=== PATIENT | female | born 1980 ===

== ENCOUNTER 2017-07-19 20:35 | Inpatient (IN) | payer MEDICAID, OTHER ==
[2017-07-19] MEDS ORDERED: Sodium Chloride 0.9% 10 ML Syringe FLUSH PRN (21:12)
[2017-07-19] MEDS ORDERED: Sodium Chloride 0.9% 2.5 ML Syringe FLUSH PRN (21:12)
--- NOTE | 2017-07-19 21:12 | EDM.PDOC ---
<Chloe Cameron - Last Filed: 07/19/17 21:54> ED HPI GENERAL MEDICAL PROBLEM - General Chief Complaint: Respiratory Problem Stated Complaint: PT LOWER BODY NUMB Time Seen by Provider: 07/19/17 21:09 Source of Information: Reports: Patient History Limitations: Reports: No Limitations - History of Present Illness INITIAL COMMENTS - FREE TEXT/NARRATIVE: HISTORY AND PHYSICAL: []37-year-old female presenting with concerns over cough and cold fever she's had this for the last 3 weeks Now patient states that from her knees to groin anterior thighs have numbness. She is concerned that her left breast is causing her pain for 4 months. And she is dehydrated History of Present Illness: [Patient moved here 6 months ago just previous to moving she had a physical examination.] Patient states that she's been a heavy drinker for a "long time" Review of Systems: As per history of present illness and below otherwise all systems reviewed and negative. Past medical history: As per history of present illness and as reviewed below otherwise noncontributory. Surgical history: As per history of present illness and as reviewed below otherwise noncontributory. Social history: No reported history of drug or alcohol abuse. Family history: As per history of present illness and as reviewed below otherwise noncontributory. Physical exam: Alert and oriented female answering questions appropriately in full sentences without any shortness of breath HEENT: Atraumatic, normocehpalic, pupils reactive, negative for conjunctival pallor or scleral icterus, mucous membranes dry, throat clear, neck supple, nontender, trachea midline. Lungs: Clear to auscultation, breath sounds equal bilaterally, chest non tender. Breast exam shows fibrocystic tissue exquisite tenderness to the 2:00 and 10:00 positions. No exudate/fluid is noted from the nipple. Heart: S1S2, regular, negative for clicks, rubs, or JVD. Abdomen: Soft, nondistended, tender upon palpation fluid present. Exquisite tenderness left upper quadrant Negative for masses or hepatossplenmegaly. Negative for costovertebral tenderness. Pelvis: Stable nontender. Genitourinary: Deferred. Rectal: Deferred Extremities: Atraumatic, negative for cords or calf pain. Neurovascular unremarkable. Neuro: Awake, alert, oriented. Cranial nerves II through XII unremarkable. Cerebellum unremarkable. Motor and sensory unremarkable throughout. Exam nonfocal. Report has been given to Dr. Cox who will take over care. Diagnostics: [cbc, cmp, influenza, UA EtOH CT abdomen pelvis with contrast] Therapeutics: [IV fluids] Impression: [Rule out Pancreatitis] Plan: [] Definitive disposition and diagnosis as appropriate pending reevaluation and review of above. Onset: Gradual Duration: Day(s): (3), Getting Worse Location: Reports: Generalized Quality: Reports: Ache, Throbbing Severity: Moderate Improves with: Reports: None Worsens with: Reports: None Associated Symptoms: Reports: Cough, Fever/Chills both legs Pain Score (Numeric/FACES): 9 - Related Data Allergies Allergy/AdvReac Type Severity Reaction Status Date / Time No Known Allergies Allergy Verified 07/19/17 21:00 Home Meds: Home Meds . [No Known Home Meds] 07/19/17 [History] Past Medical History - Past Health History Medical/Surgical History: Denies Medical/Surgical History Social & Family History - Tobacco Use Smoking Status *Q: Never Smoker Second Hand Smoke Exposure: No - Alcohol Use Days Per Week of Alcohol Use: 2 Number of Drinks Per Day: 4 Total Drinks Per Week: 8 - Recreational Drug Use Recreational Drug Use: No ED ROS GENERAL - Review of Systems Review Of Systems: ROS reveals no pertinent complaints other than HPI. ED EXAM, GENERAL - Physical Exam Exam: See Below (see dictation) Course - Vital Signs Last Recorded V/S: Last Vital Signs Temp 97.4 F 07/20/17 01:09 Pulse 101 H 07/20/17 01:09 Resp 18 07/20/17 01:09 BP 109/71 07/20/17 01:09 Pulse Ox 99 07/20/17 01:09 - Orders/Labs/Meds Orders: Active Orders 24 hr Category Date Time Status Abdomen Ltd [US] Stat Exams 07/20/17 00:19 Ordered Abdomen Pelvis w Cont [CT] Stat Exams 07/19/17 21:34 Taken Chest 2V [CR] Stat Exams 07/19/17 21:13 Taken CULTURE URINE [RM] Stat Lab 07/19/17 20:15 Received Sodium Chloride 0.9% [Normal Saline] 1,000 ml Med 07/19/17 23:46 Active IV STAT Sodium Chloride 0.9% [Saline Flush] Med 07/19/17 21:12 Active 10 ml FLUSH ASDIRECTED PRN Sodium Chloride 0.9% [Saline Flush] Med 07/19/17 21:12 Active 2.5 ml FLUSH ASDIRECTED PRN Saline Lock Insert [OM.PC] Stat Oth 07/19/17 21:12 Ordered Medication Orders Sodium Chloride (Normal Saline) 1,000 mls @ 125 mls/hr IV STAT ONE Stop: 07/20/17 07:45 Last Admin: 07/19/17 23:52 Dose: 125 mls/hr Sodium Chloride (Saline Flush) 10 ml FLUSH ASDIRECTED PRN PRN Reason: Keep Vein Open Last Admin: 07/19/17 22:52 Dose: 10 ml Sodium Chloride (Saline Flush) 2.5 ml FLUSH ASDIRECTED PRN PRN Reason: Keep Vein Open Last Admin: 07/19/17 22:51 Dose: 2.5 ml Labs: Laboratory Tests 07/19/17 07/19/17 07/19/17 Range/Units 20:15 20:15 20:15 WBC (4.0-11.0) K/uL RBC (4.30-5.90) M/uL Hgb (12.0-16.0) g/dL Hct (36.0-46.0) % MCV (80.0-98.0) fL MCH (27.0-32.0) pg MCHC (31.0-37.0) g/dL RDW Std Deviation (28.0-62.0) fl RDW Coeff of Kj (11.0-15.0) % Plt Count (150-400) K/uL MPV (7.40-12.00) fL Add Manual Diff Neutrophils % (Manual) (48.0-80.0) % Band Neutrophils % % Lymphocytes % (Manual) (16.0-40.0) % Monocytes % (Manual) (0.0-15.0) % Eosinophils % (Manual) (0.0-7.0) % Basophils % (Manual) (0.0-1.5) % Nucleated RBC % /100WBC Absolute Seg Neuts (1.4-5.7) Band Neutrophils # Lymphocytes # (Manual) (0.6-2.4) Monocytes # (Manual) (0.0-0.8) Eosinophils # (Manual) (0.0-0.7) Basophils # (Manual) (0.0-0.1) Nucleated RBCs # K/uL Lactate (0.20-2.00) mmol/L Sodium (136-146) mmol/L Potassium (3.5-5.1) mmol/L Chloride (98-110) mmol/L Carbon Dioxide (21-31) mmol/L BUN (6.0-23.0) mg/dL Creatinine (0.6-1.5) mg/dL Est Cr Clr Drug Dosing mL/min Estimated GFR (MDRD) ml/min Glucose (60-110) mg/dL Calcium (8.8-10.8) mg/dL Total Bilirubin (0.1-1.5) mg/dL AST (5-40) IU/L ALT (8-54) IU/L Alkaline Phosphatase (40-150) Total Protein (6.0-8.0) g/dL Albumin (3.5-5.0) g/dL Globulin (2.0-3.5) g/dL Albumin/Globulin Ratio (1.3-2.8) Amylase (10-90) U/L Lipase (7-80) U/L Urine Color DARK YELLOW Urine Appearance SLT CLOUDY Urine pH 6.5 (5.0-8.0) Ur Specific [place] 1.020 (1.001-1.035) Urine Protein 30 (NEGATIVE) mg/dL Urine Glucose (UA) 100 H (NEGATIVE) mg/dL Urine Ketones 15 H (NEGATIVE) mg/dL Urine Occult Blood NEGATIVE (NEGATIVE) Urine Nitrite POSITIVE H (NEGATIVE) Urine Bilirubin MODERATE H (NEGATIVE) Urine Ictotest POSITIVE Urine Urobilinogen 4.0 H (<2.0) EU/dL Ur Leukocyte Esterase SMALL (NEGATIVE) Urine RBC 0-3 (0-2/HPF) Urine WBC 5-10 (0-5/HPF) Ur Epithelial Cells MODERATE (NONE-FEW) Urine Bacteria 4+ H (NEGATIVE) Urinalysis Comment Urine HCG, Qual NEGATIVE (NEGATIVE) Urine Opiates Screen NEGATIVE (NEGATIVE) Ur Oxycodone Screen NEGATIVE (NEGATIVE) Urine Methadone Screen NEGATIVE (NEGATIVE) Ur Barbiturates Screen NEGATIVE (NEGATIVE) Ur Phencyclidine Scrn NEGATIVE (NEGATIVE) Ur Amphetamine Screen NEGATIVE (NEGATIVE) U Methamphetamines Scrn NEGATIVE (NEGATIVE) U Benzodiazepines Scrn NEGATIVE (NEGATIVE) U Cocaine Metab Screen NEGATIVE (NEGATIVE) U Marijuana (THC) Screen NEGATIVE (NEGATIVE) Ethyl Alcohol mg/dL 07/19/17 07/19/17 07/19/17 Range/Units 21:15 21:15 21:20 WBC 20.44 H (4.0-11.0) K/uL RBC 3.79 L (4.30-5.90) M/uL Hgb 13.7 (12.0-16.0) g/dL Hct 39.2 (36.0-46.0) % MCV 103.4 H (80.0-98.0) fL MCH 36.1 H (27.0-32.0) pg MCHC 34.9 (31.0-37.0) g/dL RDW Std Deviation 50.1 (28.0-62.0) fl RDW Coeff of Kj 13 (11.0-15.0) % Plt Count 530 H (150-400) K/uL MPV 10.20 (7.40-12.00) fL Add Manual Diff YES Neutrophils % (Manual) 75 (48.0-80.0) % Band Neutrophils % 6 % Lymphocytes % (Manual) 13 L (16.0-40.0) % Monocytes % (Manual) 4 (0.0-15.0) % Eosinophils % (Manual) 1 (0.0-7.0) % Basophils % (Manual) 1 (0.0-1.5) % Nucleated RBC % 0.0 /100WBC Absolute Seg Neuts 15.3 H (1.4-5.7) Band Neutrophils # 1.2 Lymphocytes # (Manual) 2.7 H (0.6-2.4) Monocytes # (Manual) 0.8 (0.0-0.8) Eosinophils # (Manual) 0.2 (0.0-0.7) Basophils # (Manual) 0.2 H (0.0-0.1) Nucleated RBCs # 0 K/uL Lactate 2.8 H (0.20-2.00) mmol/L Sodium (136-146) mmol/L Potassium (3.5-5.1) mmol/L Chloride (98-110) mmol/L Carbon Dioxide (21-31) mmol/L BUN (6.0-23.0) mg/dL Creatinine (0.6-1.5) mg/dL Est Cr Clr Drug Dosing mL/min Estimated GFR (MDRD) ml/min Glucose (60-110) mg/dL Calcium (8.8-10.8) mg/dL Total Bilirubin (0.1-1.5) mg/dL AST (5-40) IU/L ALT (8-54) IU/L Alkaline Phosphatase (40-150) Total Protein (6.0-8.0) g/dL Albumin (3.5-5.0) g/dL Globulin (2.0-3.5) g/dL Albumin/Globulin Ratio (1.3-2.8) Amylase (10-90) U/L Lipase (7-80) U/L Urine Color Urine Appearance Urine pH (5.0-8.0) Ur Specific [place] (1.001-1.035) Urine Protein (NEGATIVE) mg/dL Urine Glucose (UA) (NEGATIVE) mg/dL Urine Ketones (NEGATIVE) mg/dL Urine Occult Blood (NEGATIVE) Urine Nitrite (NEGATIVE) Urine Bilirubin (NEGATIVE) Urine Ictotest Urine Urobilinogen (<2.0) EU/dL Ur Leukocyte Esterase (NEGATIVE) Urine RBC (0-2/HPF) Urine WBC (0-5/HPF) Ur Epithelial Cells (NONE-FEW) Urine Bacteria (NEGATIVE) Urinalysis Comment Urine HCG, Qual (NEGATIVE) Urine Opiates Screen (NEGATIVE) Ur Oxycodone Screen (NEGATIVE) Urine Methadone Screen (NEGATIVE) Ur Barbiturates Screen (NEGATIVE) Ur Phencyclidine Scrn (NEGATIVE) Ur Amphetamine Screen (NEGATIVE) U Methamphetamines Scrn (NEGATIVE) U Benzodiazepines Scrn (NEGATIVE) U Cocaine Metab Screen (NEGATIVE) U Marijuana (THC) Screen (NEGATIVE) Ethyl Alcohol < 10.0 mg/dL 07/19/17 Range/Units 21:20 WBC (4.0-11.0) K/uL RBC (4.30-5.90) M/uL Hgb (12.0-16.0) g/dL Hct (36.0-46.0) % MCV (80.0-98.0) fL MCH (27.0-32.0) pg MCHC (31.0-37.0) g/dL RDW Std Deviation (28.0-62.0) fl RDW Coeff of Kj (11.0-15.0) % Plt Count (150-400) K/uL MPV (7.40-12.00) fL Add Manual Diff Neutrophils % (Manual) (48.0-80.0) % Band Neutrophils % % Lymphocytes % (Manual) (16.0-40.0) % Monocytes % (Manual) (0.0-15.0) % Eosinophils % (Manual) (0.0-7.0) % Basophils % (Manual) (0.0-1.5) % Nucleated RBC % /100WBC Absolute Seg Neuts (1.4-5.7) Band Neutrophils # Lymphocytes # (Manual) (0.6-2.4) Monocytes # (Manual) (0.0-0.8) Eosinophils # (Manual) (0.0-0.7) Basophils # (Manual) (0.0-0.1) Nucleated RBCs # K/uL Lactate (0.20-2.00) mmol/L Sodium 134 L (136-146) mmol/L Potassium 3.0 L (3.5-5.1) mmol/L Chloride 92 L (98-110) mmol/L Carbon Dioxide 28 (21-31) mmol/L BUN 7 (6.0-23.0) mg/dL Creatinine 0.6 (0.6-1.5) mg/dL Est Cr Clr Drug Dosing 98.75 mL/min Estimated GFR (MDRD) > 60.0 ml/min Glucose 107 (60-110) mg/dL Calcium 9.4 (8.8-10.8) mg/dL Total Bilirubin 2.1 H (0.1-1.5) mg/dL AST 181 H (5-40) IU/L ALT 68 H (8-54) IU/L Alkaline Phosphatase 235 H (40-150) Total Protein 7.9 (6.0-8.0) g/dL Albumin 3.8 (3.5-5.0) g/dL Globulin 4.1 H (2.0-3.5) g/dL Albumin/Globulin Ratio 0.9 L (1.3-2.8) Amylase 80 (10-90) U/L Lipase 22 (7-80) U/L Urine Color Urine Appearance Urine pH (5.0-8.0) Ur Specific [place] (1.001-1.035) Urine Protein (NEGATIVE) mg/dL Urine Glucose (UA) (NEGATIVE) mg/dL Urine Ketones (NEGATIVE) mg/dL Urine Occult Blood (NEGATIVE) Urine Nitrite (NEGATIVE) Urine Bilirubin (NEGATIVE) Urine Ictotest Urine Urobilinogen (<2.0) EU/dL Ur Leukocyte Esterase (NEGATIVE) Urine RBC (0-2/HPF) Urine WBC (0-5/HPF) Ur Epithelial Cells (NONE-FEW) Urine Bacteria (NEGATIVE) Urinalysis Comment Urine HCG, Qual (NEGATIVE) Urine Opiates Screen (NEGATIVE) Ur Oxycodone Screen (NEGATIVE) Urine Methadone Screen (NEGATIVE) Ur Barbiturates Screen (NEGATIVE) Ur Phencyclidine Scrn (NEGATIVE) Ur Amphetamine Screen (NEGATIVE) U Methamphetamines Scrn (NEGATIVE) U Benzodiazepines Scrn (NEGATIVE) U Cocaine Metab Screen (NEGATIVE) U Marijuana (THC) Screen (NEGATIVE) Ethyl Alcohol mg/dL Meds: Medications Generic Name Dose Route Start Last Admin Trade Name Freq PRN Reason Stop Dose Admin Sodium Chloride 1,000 mls @ 125 mls/hr 07/19/17 23:46 07/19/17 23:52 Normal Saline IV 07/20/17 07:45 125 mls/hr STAT ONE Administration Sodium Chloride 10 ml 07/19/17 21:12 07/19/17 22:52 Saline Flush FLUSH 10 ml ASDIRECTED PRN Administration Keep Vein Open Sodium Chloride 2.5 ml 07/19/17 21:12 07/19/17 22:51 Saline Flush FLUSH 2.5 ml ASDIRECTED PRN Administration Keep Vein Open Discontinued Medications Generic Name Dose Route Start Last Admin Trade Name Freq PRN Reason Stop Dose Admin Sodium Chloride 1,000 mls @ 999 mls/hr 07/19/17 22:48 07/19/17 22:51 Normal Saline IV 07/19/17 23:48 999 mls/hr STAT ONE Administration Piperacillin Sod/Tazobactam 50 mls @ 100 mls/hr 07/19/17 23:33 07/19/17 23:47 Sod 3.375 gm/ Sodium Chloride IV 07/20/17 00:02 100 mls/hr ONETIME ONE Administration Ketorolac Tromethamine 30 mg 07/19/17 22:23 07/19/17 22:53 Toradol IVPUSH 07/19/17 22:24 30 mg ONETIME ONE Administration Ondansetron HCl 4 mg 07/19/17 22:23 07/19/17 22:52 Zofran IVPUSH 07/19/17 22:24 4 mg ONETIME ONE Administration Departure - Departure Time of Disposition: 21:57 Disposition: Refer to Observation Condition: Good Clinical Impression: Pancreatitis, Right upper quadrant pain, Hepatomegaly, Elevated liver function tests, UTI (urinary tract infection) - Discharge Information Referrals: PCP,None [Primary Care Provider] - Forms: ED Department Discharge - My Orders Last 24 Hours: My Active Orders 07/19/17 23:46 Sodium Chloride 0.9% [Normal Saline] 1,000 ml IV STAT 07/20/17 00:19 [place] [[place]] Stat - Assessment/Plan Last 24 Hours: My Active Orders 07/19/17 23:46 Sodium Chloride 0.9% [Normal Saline] 1,000 ml IV STAT 07/20/17 00:19 [facility] [[place]] Stat <Marc Cardona - Last Filed: 07/20/17 01:22> ED HPI GENERAL MEDICAL PROBLEM - History of Present Illness INITIAL COMMENTS - FREE TEXT/NARRATIVE: Patient is seen and examined agree with above Patient clinically looks well however lab has returned abnormal with abnormal liver function, she is a known heavy drinker lab is consistent with that along with right upper quadrant pain I did add an abdominal ultrasound which was negative for evidence of cholecystitis there is a little sludge in the gallbladder. She has significant urinary tract infection elevated white count and lactate is 3 Assessment UTI Right upper quadrant discomfort Fatty liver Hepatomegaly Elevated liver function tests Alcohol use abuse and dependence Chronic history of baseline Plan Patient was provided Zosyn 3.375 g IV Toradol 30 mg IV Zofran 8 mg IV Patient be admitted for observation Dr. Lawton Departure - Departure Condition: Fair
[2017-07-19 22:01] LABS: CHLORIDE,CL 92 mmol/L (98-110); SODIUM,NA 134 mmol/L (136-146)
[2017-07-19] MEDS ORDERED: Ketorolac 30 MG/ML SDV IVPUSH ONE (22:23)
[2017-07-19] MEDS ORDERED: Ondansetron 4 MG/2 ML SDV IVPUSH ONE (22:23)
[2017-07-19] MEDS ORDERED: Sodium Chloride 0.9% 1,000 ML IV ONE ×2 (22:48→23:46)
[2017-07-19] MEDS ORDERED: Piperacillin/Tazobactam 3.375 GM in Sodium Chloride 0.9% 50 ML IV ONE (23:33)
[2017-07-20] MEDS ORDERED: Morphine 2 MG/ML Syringe IVPUSH PRN (02:11)
[2017-07-20] MEDS ORDERED: Potassium Chloride 20 MEQ Tab.ER PO ONE ×2 (02:14→12:27)
[2017-07-20 03:41] LABS: CHLORIDE,CL 98 mmol/L (98-110); SODIUM,NA 136 mmol/L (136-146)
[2017-07-20] MEDS: LORazepam 2 MG/ML SDV IVPUSH PRN ×5 (04:18→23:30)
[2017-07-20] MEDS: Piperacillin/Tazobactam 3.375 GM in Sodium Chloride 0.9% 50 ML IV SCH ×4 (06:05→23:09)
[2017-07-20] MEDS: Sodium Chloride 0.9% 1,000 ML IV SCH ×2 (08:36→17:13)
[2017-07-20] MEDS: Folic Acid 1 MG Tab PO SCH (09:03)
[2017-07-20] MEDS: Thiamine 100 MG Tab PO SCH (09:03)
--- NOTE | 2017-07-20 12:34 | PCM.HP ---
H&P History of Present Illness - General Admit Problem/Dx: Admission Diagnosis/Problem Admission Diagnosis/Problem UTI, Urinary tract infectious disease - History of Present Illness Initial Comments - Free Text/Narative: 37 yo female who presents to the ED feeling ill. She reports fevers, chills and myalgias. She reports back pain as well as abdminal numbness. She reports nausea and vomiting. She has not been able to eat anything for a day. She admits to drinking a large bottle of fireball a day. She reports when she tries to cut back she gets sick. She wants to quit drinking. WBC was 20,440, Lactate of 2.8, Total bilirubin of 2.1, AST 181, ALT 68, Alk phos 235. CT abdomen reports Hepatic steatosi and hepatomegaly. RUQ ultrasound reported gallbladder sludge but no further signs of cholecystitis. Left Upper Abdomen Pain Score (Numeric/FACES): 9 both legs Pain Score (Numeric/FACES): 9 - Related Data Allergies/Adverse Reactions: Allergies Allergy/AdvReac Type Severity Reaction Status Date / Time No Known Allergies Allergy Verified 07/19/17 21:00 Home Medications: Home Meds . [No Known Home Meds] 07/19/17 [History] Past Medical History - Past Health History Medical/Surgical History: Denies Medical/Surgical History HEENT History: Reports: None Cardiovascular History: Reports: None Respiratory History: Reports: None Gastrointestinal History: Reports: None Genitourinary History: Reports: None PRODUCT DEVELOPMENT INTERN History: Reports: Musculoskeletal History: Reports: None Neurological History: Reports: None Psychiatric History: Reports: None Endocrine/Metabolic History: Reports: None Hematologic History: Reports: None Immunologic History: Reports: None Oncologic (Cancer) History: Reports: None Dermatologic History: Reports: None - Infectious Disease History Infectious Disease History: Reports: None - Past Surgical History GI Surgical History: Reports: Appendectomy Social & Family History - Family History Family Medical History: Noncontributory - Tobacco Use Smoking Status *Q: Never Smoker Second Hand Smoke Exposure: No - Caffeine Use Caffeine Use: Reports: None - Alcohol Use Days Per Week of Alcohol Use: 7 Number of Drinks Per Day: 5 Total Drinks Per Week: 35 - Recreational Drug Use Recreational Drug Use: No H&P Review of Systems - Review of Systems: Review Of Systems: ROS reveals no pertinent complaints other than HPI. Exam - Exam Exam: See Below - Vital Signs Vital Signs: Last Vital Signs Temp 36.3 C 07/20/17 08:00 Pulse 85 07/20/17 08:00 Resp 16 07/20/17 08:00 BP 123/91 H 07/20/17 08:00 Pulse Ox 97 07/20/17 08:00 Weight: 54.431 kg - Exam General: Alert, Oriented HEENT: Mucosa Moist & [place], Posterior Pharynx Clear Neck: Supple Lungs: Clear to Auscultation, Normal Respiratory Effort Cardiovascular: Regular Rate, Regular Rhythm GI/Abdominal Exam: Soft, No Distention, Tender (in left lower quadrant). No: Guarding, Rigid, Rebound Back Exam: No: CVA Tenderness (L), CVA Tenderness (R) Skin: Warm, Dry, Intact - Patient Data Lab Results Last 24 hrs: Laboratory Results - last 24 hr 07/20/17 07/20/17 07/20/17 Range/Units 03:00 03:00 03:00 WBC 18.92 H (4.0-11.0) K/uL RBC 3.42 L (4.30-5.90) M/uL Hgb 12.0 (12.0-16.0) g/dL Hct 35.5 L (36.0-46.0) % MCV 103.8 H (80.0-98.0) fL MCH 35.1 H (27.0-32.0) pg MCHC 33.8 (31.0-37.0) g/dL RDW Std Deviation 45.1 (28.0-62.0) fl RDW Coeff of Kj 12 (11.0-15.0) % Plt Count 477 H (150-400) K/uL MPV 10.20 (7.40-12.00) fL Neut % (Auto) 78.2 (48.0-80.0) % Lymph % (Auto) 12.9 L (16.0-40.0) % [place] % (Auto) 7.6 (0.0-15.0) % Eos % (Auto) 1.1 (0.0-7.0) % Baso % (Auto) 0.2 (0.0-1.5) % Neut # (Auto) 14.8 H (1.4-5.7) K/uL Lymph # (Auto) 2.5 H (0.6-2.4) K/uL [place] # (Auto) 1.4 H (0.0-0.8) K/uL Eos # (Auto) 0.2 (0.0-0.7) K/uL Baso # (Auto) 0.0 (0.0-0.1) K/uL Lactate 1.9 (0.20-2.00) mmol/L Sodium 136 (136-146) mmol/L Potassium 3.2 L (3.5-5.1) mmol/L Chloride 98 (98-110) mmol/L Carbon Dioxide 24 (21-31) mmol/L BUN 5 L (6.0-23.0) mg/dL Creatinine 0.5 L (0.6-1.5) mg/dL Est Cr Clr Drug Dosing 118.50 mL/min Estimated GFR (MDRD) > 60.0 ml/min Glucose 96 (60-110) mg/dL Calcium 8.1 L (8.8-10.8) mg/dL Total Bilirubin (0.1-1.5) mg/dL Direct Bilirubin (0.0-0.5) mg/dL Indirect Bilirubin (0.0-1.0) mg/dL AST (5-40) IU/L ALT (8-54) IU/L Alkaline Phosphatase (40-150) Total Protein (6.0-8.0) g/dL Albumin (3.5-5.0) g/dL Globulin (2.0-3.5) g/dL Albumin/Globulin Ratio (1.3-2.8) 07/20/17 Range/Units 03:00 WBC (4.0-11.0) K/uL RBC (4.30-5.90) M/uL Hgb (12.0-16.0) g/dL Hct (36.0-46.0) % MCV (80.0-98.0) fL MCH (27.0-32.0) pg MCHC (31.0-37.0) g/dL RDW Std Deviation (28.0-62.0) fl RDW Coeff of Kj (11.0-15.0) % Plt Count (150-400) K/uL MPV (7.40-12.00) fL Neut % (Auto) (48.0-80.0) % Lymph % (Auto) (16.0-40.0) % [place] % (Auto) (0.0-15.0) % Eos % (Auto) (0.0-7.0) % Baso % (Auto) (0.0-1.5) % Neut # (Auto) (1.4-5.7) K/uL Lymph # (Auto) (0.6-2.4) K/uL [place] # (Auto) (0.0-0.8) K/uL Eos # (Auto) (0.0-0.7) K/uL Baso # (Auto) (0.0-0.1) K/uL Lactate (0.20-2.00) mmol/L Sodium (136-146) mmol/L Potassium (3.5-5.1) mmol/L Chloride (98-110) mmol/L Carbon Dioxide (21-31) mmol/L BUN (6.0-23.0) mg/dL Creatinine (0.6-1.5) mg/dL Est Cr Clr Drug Dosing mL/min Estimated GFR (MDRD) ml/min Glucose (60-110) mg/dL Calcium (8.8-10.8) mg/dL Total Bilirubin 1.7 H (0.1-1.5) mg/dL Direct Bilirubin 1.0 H (0.0-0.5) mg/dL Indirect Bilirubin 0.7 (0.0-1.0) mg/dL AST 150 H (5-40) IU/L ALT 57 H (8-54) IU/L Alkaline Phosphatase 200 H (40-150) Total Protein 6.6 (6.0-8.0) g/dL Albumin 3.2 L (3.5-5.0) g/dL Globulin 3.4 (2.0-3.5) g/dL Albumin/Globulin Ratio 0.9 L (1.3-2.8) Result Diagrams: 07/20/17 03:00 07/20/17 03:00 *Q Meaningful Use (ADM) - VTE *Q VTE Criteria *Q: - Stroke *Q Stroke Criteria *Q: - AMI *Q AMI Criteria *Q: Problem List Initiated/Reviewed/Updated: Yes Orders Last 24hrs: Active Orders 24 hr Category Date Time Status Clear Liquid Diet [DIET] Diet 07/20/17 Breakfast Active Folic Acid Med 07/20/17 09:00 Active 1 mg PO DAILY LORazepam [Ativan] Med 07/20/17 02:17 Active See Protocol IVPUSH Q4H PRN Morphine Med 07/20/17 02:11 Active 2 mg IVPUSH Q2H PRN Ondansetron [Zofran] Med 07/20/17 02:13 Active 4 mg IVPUSH Q3H PRN Piperacillin/Tazobactam [Piperacil-Tazobact] 3.375 gm Med 07/20/17 06:00 Active Sodium Chloride 0.9% [Normal Saline] 50 ml IV Q6H Potassium Chloride [Klor-Con M20] Med 07/20/17 12:27 Once 40 meq PO ONETIME ONE Sodium Chloride 0.9% [Normal Saline] 1,000 ml Med 07/20/17 02:30 Active IV ASDIRECTED Thiamine [Vitamin B-1] Med 07/20/17 09:00 Active 100 mg PO DAILY Medication Orders Folic Acid (Folic Acid) 1 mg PO DAILY [facility] Last Admin: 07/20/17 09:03 Dose: 1 mg Piperacillin Sod/Tazobactam (Sod 3.375 gm/ Sodium Chloride) 50 mls @ 100 mls/ hr IV Q6H [facility] Last Admin: 07/20/17 11:58 Dose: 100 mls/hr Infusion: 07/20/17 06:35 Dose: 100 mls/hr Admin: 07/20/17 06:05 Dose: 100 mls/hr Sodium Chloride (Normal Saline) 1,000 mls @ 125 mls/hr IV ASDIRECTED KEVIN Last Admin: 07/20/17 08:36 Dose: 125 mls/hr Lorazepam (Ativan) 0 mg IVPUSH Q4H PRN; Protocol PRN Reason: Other Last Admin: 07/20/17 08:48 Dose: 1 mg Admin: 07/20/17 04:18 Dose: 2 mg Morphine Sulfate (Morphine) 2 mg IVPUSH Q2H PRN PRN Reason: Pain Last Admin: 07/20/17 02:29 Dose: 2 mg Ondansetron HCl (Zofran) 4 mg IVPUSH Q3H PRN PRN Reason: Nausea/Vomiting Sodium Chloride (Saline Flush) 10 ml FLUSH ASDIRECTED PRN PRN Reason: Keep Vein Open Last Admin: 07/19/17 22:52 Dose: 10 ml Sodium Chloride (Saline Flush) 2.5 ml FLUSH ASDIRECTED PRN PRN Reason: Keep Vein Open Last Admin: 07/19/17 22:51 Dose: 2.5 ml Thiamine HCl (Vitamin B-1) 100 mg PO DAILY [facility] Last Admin: 07/20/17 09:03 Dose: 100 mg Assessment/Plan Comment:: 37 yo female admitted for alcohol withdrawal, and UTI Alcohol withdrawal: continue CIWA protocol, ativan, thiamin and folic acid UTI: on Zosyn, urine culture pending Elevated liver enzymes: likely due to ETOH, will check hepatitis panel.
[2017-07-20] MEDS: Pantoprazole 40 MG Vial IVPUSH SCH (13:11)
[2017-07-20] MEDS: Morphine 2 MG/ML Syringe IVPUSH PRN ×2 (14:05→19:52)
[2017-07-21] MEDS: Morphine 2 MG/ML Syringe IVPUSH PRN ×2 (00:55→05:36)
[2017-07-21] MEDS: Sodium Chloride 0.9% 1,000 ML IV SCH ×3 (02:16→20:52)
[2017-07-21] MEDS: Piperacillin/Tazobactam 3.375 GM in Sodium Chloride 0.9% 50 ML IV SCH ×3 (05:37→17:30)
[2017-07-21 06:12] LABS: CHLORIDE,CL 103 mmol/L (98-110); SODIUM,NA 135 mmol/L (136-146)
[2017-07-21] MEDS: Folic Acid 1 MG Tab PO SCH (08:01)
[2017-07-21] MEDS: Thiamine 100 MG Tab PO SCH (08:02)
[2017-07-21] MEDS: LORazepam 2 MG/ML SDV IVPUSH PRN ×4 (08:12→20:50)
[2017-07-21] MEDS ORDERED: Potassium Chloride 20 MEQ Tab.ER PO ONE (11:38)
--- NOTE | 2017-07-21 11:42 | PCM.PN ---
- Review of Systems Systems Review Comment:: feeling better, reports abdominal wall numbness, denies any pain, received ativan at around 8:00 today - Patient Data Vitals - Most Recent: Last Vital Signs Temp 35.6 C 07/21/17 08:00 Pulse 83 07/21/17 08:00 Resp 20 07/21/17 08:00 BP 113/69 07/21/17 08:00 Pulse Ox 98 07/21/17 08:00 Weight - Most Recent: 54.431 kg I&O - Last 24 Hours: Intake & Output 07/20/17 07/21/17 07/21/17 22:59 06:59 14:59 Intake Total 850 Output Total 600 Balance 250 Lab Results Last 24 Hours: Laboratory Results - last 24 hr 07/21/17 07/21/17 Range/Units 05:20 05:20 WBC 16.93 H (4.0-11.0) K/uL RBC 3.49 L (4.30-5.90) M/uL Hgb 12.0 (12.0-16.0) g/dL Hct 36.6 (36.0-46.0) % MCV 104.9 H (80.0-98.0) fL MCH 34.4 H (27.0-32.0) pg MCHC 32.8 (31.0-37.0) g/dL RDW Std Deviation 50.9 (28.0-62.0) fl RDW Coeff of Kj 13 (11.0-15.0) % Plt Count 491 H (150-400) K/uL MPV 10.80 (7.40-12.00) fL Neut % (Auto) 75.4 (48.0-80.0) % Lymph % (Auto) 16.1 (16.0-40.0) % Grayson % (Auto) 6.1 (0.0-15.0) % Eos % (Auto) 1.9 (0.0-7.0) % Baso % (Auto) 0.5 (0.0-1.5) % Neut # (Auto) 12.8 H (1.4-5.7) K/uL Lymph # (Auto) 2.7 H (0.6-2.4) K/uL Grayson # (Auto) 1.0 H (0.0-0.8) K/uL Eos # (Auto) 0.3 (0.0-0.7) K/uL Baso # (Auto) 0.1 (0.0-0.1) K/uL Nucleated RBC % 0.0 /100WBC Nucleated RBCs # 0 K/uL Sodium 135 L (136-146) mmol/L Potassium 3.5 (3.5-5.1) mmol/L Chloride 103 (98-110) mmol/L Carbon Dioxide 20 L (21-31) mmol/L BUN 2 L (6.0-23.0) mg/dL Creatinine 0.5 L (0.6-1.5) mg/dL Est Cr Clr Drug Dosing 118.50 mL/min Estimated GFR (MDRD) > 60.0 ml/min Glucose 95 (60-110) mg/dL Calcium 8.2 L (8.8-10.8) mg/dL Phosphorus 1.5 L (2.4-4.7) mg/dL Magnesium 0.8 L (1.5-2.3) mEq/L Total Bilirubin 1.2 (0.1-1.5) mg/dL AST 131 H (5-40) IU/L ALT 50 (8-54) IU/L Alkaline Phosphatase 195 H (40-150) Total Protein 6.4 (6.0-8.0) g/dL Albumin 3.2 L (3.5-5.0) g/dL Globulin 3.2 (2.0-3.5) g/dL Albumin/Globulin Ratio 1.0 L (1.3-2.8) Klaus Results Last 24 Hours: Microbiology 07/20/17 13:30 Influenza Type A Antigen Screen - Final Nasopharyngeal Swab - Nare, Right NEGATIVE INFLUENZA A VIRUS AG Influenza Type B Antigen Screen - Final NEGATIVE INFLUENZA B VIRUS AG Med Orders - Current: Current Medications Folic Acid (Folic Acid) 1 mg PO DAILY [facility] Last Admin: 07/21/17 08:01 Dose: 1 mg Piperacillin Sod/Tazobactam (Sod 3.375 gm/ Sodium Chloride) 50 mls @ 100 mls/ hr IV Q6H [facility] Last Admin: 07/21/17 11:08 Dose: 100 mls/hr Sodium Chloride (Normal Saline) 1,000 mls @ 125 mls/hr IV ASDIRECTED [facility] Last Admin: 07/21/17 10:55 Dose: 125 mls/hr Lorazepam (Ativan) 0 mg IVPUSH Q4H PRN; Protocol PRN Reason: Other Last Admin: 07/21/17 08:12 Dose: 1 mg Morphine Sulfate (Morphine) 2 mg IVPUSH Q4H PRN PRN Reason: Pain Last Admin: 07/21/17 05:36 Dose: 2 mg Ondansetron HCl (Zofran) 4 mg IVPUSH Q3H PRN PRN Reason: Nausea/Vomiting Pantoprazole Sodium (Protonix Iv) 40 mg IVPUSH Q24H [facility] Last Admin: 07/20/17 13:11 Dose: 40 mg Sodium Chloride (Saline Flush) 10 ml FLUSH ASDIRECTED PRN PRN Reason: Keep Vein Open Last Admin: 07/19/17 22:52 Dose: 10 ml Sodium Chloride (Saline Flush) 2.5 ml FLUSH ASDIRECTED PRN PRN Reason: Keep Vein Open Last Admin: 07/19/17 22:51 Dose: 2.5 ml Sodium Phosphate (Neutra-Phos) 250 mg PO QID [facility] Stop: 07/21/17 23:59 Thiamine HCl (Vitamin B-1) 100 mg PO DAILY [facility] Last Admin: 07/21/17 08:02 Dose: 100 mg Discontinued Medications Sodium Chloride (Normal Saline) 1,000 mls @ 999 mls/hr IV STAT ONE Stop: 07/19/17 23:48 Last Admin: 07/19/17 22:51 Dose: 999 mls/hr Piperacillin Sod/Tazobactam (Sod 3.375 gm/ Sodium Chloride) 50 mls @ 100 mls/ hr IV ONETIME ONE Stop: 07/20/17 00:02 Last Admin: 07/19/17 23:47 Dose: 100 mls/hr Sodium Chloride (Normal Saline) 1,000 mls @ 125 mls/hr IV STAT ONE Stop: 07/20/17 07:45 Last Admin: 07/19/17 23:52 Dose: 125 mls/hr Ketorolac Tromethamine (Toradol) 30 mg IVPUSH ONETIME ONE Stop: 07/19/17 22:24 Last Admin: 07/19/17 22:53 Dose: 30 mg Morphine Sulfate (Morphine) 2 mg IVPUSH Q2H PRN PRN Reason: Pain Last Admin: 07/20/17 02:29 Dose: 2 mg Ondansetron HCl (Zofran) 4 mg IVPUSH ONETIME ONE Stop: 07/19/17 22:24 Last Admin: 07/19/17 22:52 Dose: 4 mg Potassium Chloride (Klor-Con M20) 40 meq PO ONETIME ONE Stop: 07/20/17 02:15 Last Admin: 07/20/17 02:29 Dose: 40 meq Potassium Chloride (Klor-Con M20) 40 meq PO ONETIME ONE Stop: 07/20/17 12:28 Last Admin: 07/20/17 12:41 Dose: 40 meq Potassium Chloride (Klor-Con M20) 40 meq PO ONETIME ONE Stop: 07/21/17 11:39 - Exam General: Alert, Oriented Lungs: Clear to Auscultation, Normal Respiratory Effort Cardiovascular: Regular Rate, Regular Rhythm GI/Abdominal Exam: Normal Bowel Sounds, Soft, Non-Tender, No Distention Back Exam: No: CVA Tenderness (L), CVA Tenderness (R) Extremities: No Pedal Edema Skin: Warm, Dry, Intact - Problem List Review Problem List Initiated/Reviewed/Updated: Yes - My Orders Last 24 Hours: My Active Orders 07/20/17 12:34 Oxygen Therapy [RC] PRN Up ad Yulissa [RC] ASDIRECTED VTE/DVT Education [RC] PER UNIT ROUTINE Vital Signs [RC] Q4H Resuscitation Status Routine 07/20/17 12:35 Antiembolic Devices [RC] PER UNIT ROUTINE Sequential Compression Device [OM.PC] Per Unit Routine 07/20/17 12:37 Morphine 2 mg IVPUSH Q4H PRN 07/20/17 12:42 HEPATITIS PANEL, ACUTE [REF] Routine 07/20/17 12:45 Pantoprazole [ProTONIX IV] 40 mg IVPUSH Q24H 07/20/17 Lunch Regular Diet [DIET] 07/21/17 12:00 Phosphorus #1 [Neutra-Phos] 250 mg PO QID 07/22/17 05:11 CBC WITH AUTO DIFF [HEME] AM COMPREHENSIVE METABOLIC PN,CMP [CHEM] AM MAGNESIUM [CHEM] AM PHOSPHORUS [CHEM] AM 07/23/17 05:11 CBC WITH AUTO DIFF [HEME] AM COMPREHENSIVE METABOLIC PN,CMP [CHEM] AM MAGNESIUM [CHEM] AM PHOSPHORUS [CHEM] AM - Plan Plan:: 37 yo female admitted for alcohol withdrawal, and UTI Alcohol withdrawal: continue CIWA protocol, ativan, thiamin and folic acid UTI: suspect pyeloneprhtiis, on Zosyn. Will switch to PO antibiotics when leukocytosis improves Elevated liver enzymes: likely due to ETOH, will check hepatitis panel.
[2017-07-21] MEDS: Pantoprazole 40 MG Vial IVPUSH SCH (11:54)
[2017-07-21] MEDS: Phosphorus #1 250 MG Tab PO SCH ×2 (11:54→17:37)
[2017-07-21] MEDS ORDERED: Magnesium Sulfate/Water 4 GM in Premix Bag 1 BAG IV ONE (12:47)
[2017-07-21] MEDS ORDERED: Fluconazole 150 MG Tab PO ONE (16:59)
[2017-07-21] MEDS: Ondansetron 4 MG/2 ML SDV IVPUSH PRN (20:50)
[2017-07-22] MEDS: Piperacillin/Tazobactam 3.375 GM in Sodium Chloride 0.9% 50 ML IV SCH ×5 (01:10→23:09)
[2017-07-22] MEDS: LORazepam 2 MG/ML SDV IVPUSH PRN ×6 (01:11→22:58)
[2017-07-22] MEDS: Sodium Chloride 0.9% 1,000 ML IV SCH ×2 (05:43→15:52)
[2017-07-22 06:32] LABS: CHLORIDE,CL 104 mmol/L (98-110); SODIUM,NA 135 mmol/L (136-146)
--- NOTE | 2017-07-22 07:57 | PCM.PN ---
- General Info Date of Service: 07/22/17 Admission Dx/Problem (Free Text): Admission Diagnosis/Problem Admission Diagnosis/Problem UTI, Urinary tract infectious disease Subjective Update: Feeling about the same today, continues to have abdominal pain and flank pain bilaterally. N/V intermittently. tremors noted. Functional Status: Reports: Pain Controlled, Tolerating Diet, Ambulating, Urinating - Review of Systems HEENT: Reports: No Symptoms Pulmonary: Reports: No Symptoms. Denies: Shortness of Breath Cardiovascular: Reports: No Symptoms. Denies: Chest Pain Gastrointestinal: Reports: Abdominal Pain, Flatus, Nausea, Vomiting. Denies: Diarrhea Genitourinary: Reports: Flank Pain. Denies: Dysuria, Frequency, Burning, Urgency Musculoskeletal: Reports: No Symptoms Neurological: Reports: No Symptoms Psychiatric: Reports: No Symptoms - Patient Data Vitals - Most Recent: Last Vital Signs Temp 96.9 F 07/22/17 04:00 Pulse 97 07/22/17 04:00 Resp 19 07/22/17 04:00 BP 124/90 07/22/17 04:00 Pulse Ox 93 L 07/22/17 04:00 Weight - Most Recent: 54.431 kg I&O - Last 24 Hours: Intake & Output 07/21/17 07/22/17 07/22/17 22:59 06:59 14:59 Intake Total 3227 2750 Output Total 900 400 Balance 2327 2350 Lab Results Last 24 Hours: Laboratory Results - last 24 hr 07/21/17 07/22/17 07/22/17 Range/Units 18:03 05:37 05:37 WBC 17.11 H (4.0-11.0) K/uL RBC 3.52 L (4.30-5.90) M/uL Hgb 12.2 (12.0-16.0) g/dL Hct 37.1 (36.0-46.0) % MCV 105.4 H (80.0-98.0) fL MCH 34.7 H (27.0-32.0) pg MCHC 32.9 (31.0-37.0) g/dL RDW Std Deviation 51.2 (28.0-62.0) fl RDW Coeff of Kj 13 (11.0-15.0) % Plt Count 502 H (150-400) K/uL MPV 10.70 (7.40-12.00) fL Add Manual Diff YES Neutrophils % (Manual) 71 (48.0-80.0) % Band Neutrophils % 3 % Lymphocytes % (Manual) 17 (16.0-40.0) % Monocytes % (Manual) 6 (0.0-15.0) % Eosinophils % (Manual) 3 (0.0-7.0) % Nucleated RBC % 0.0 /100WBC Absolute Seg Neuts 12.1 H (1.4-5.7) Band Neutrophils # 0.5 Lymphocytes # (Manual) 2.9 H (0.6-2.4) Monocytes # (Manual) 1.0 H (0.0-0.8) Eosinophils # (Manual) 0.5 (0.0-0.7) Nucleated RBCs # 0 K/uL Sodium 135 L (136-146) mmol/L Potassium 3.7 (3.5-5.1) mmol/L Chloride 104 (98-110) mmol/L Carbon Dioxide 20 L (21-31) mmol/L BUN 1 L (6.0-23.0) mg/dL Creatinine 0.5 L (0.6-1.5) mg/dL Est Cr Clr Drug Dosing 118.50 mL/min Estimated GFR (MDRD) > 60.0 ml/min Glucose 73 (60-110) mg/dL Calcium 8.4 L (8.8-10.8) mg/dL Phosphorus 2.6 (2.4-4.7) mg/dL Magnesium 2.4 H 1.6 (1.5-2.3) mEq/L Total Bilirubin 1.4 (0.1-1.5) mg/dL AST 176 H (5-40) IU/L ALT 58 H (8-54) IU/L Alkaline Phosphatase 178 H (40-150) Total Protein 6.9 (6.0-8.0) g/dL Albumin 3.3 L (3.5-5.0) g/dL Globulin 3.6 H (2.0-3.5) g/dL Albumin/Globulin Ratio 0.9 L (1.3-2.8) Med Orders - Current: Current Medications Folic Acid (Folic Acid) 1 mg PO DAILY [facility] Last Admin: 07/21/17 08:01 Dose: 1 mg Piperacillin Sod/Tazobactam (Sod 3.375 gm/ Sodium Chloride) 50 mls @ 100 mls/ hr IV Q6H COUNTS INCLUDE 234 BEDS AT THE [facility] Last Admin: 07/22/17 05:43 Dose: 100 mls/hr Sodium Chloride (Normal Saline) 1,000 mls @ 125 mls/hr IV ASDIRECTED COUNTS INCLUDE 234 BEDS AT THE [facility] Last Admin: 07/22/17 05:43 Dose: 125 mls/hr Lorazepam (Ativan) 0 mg IVPUSH Q4H PRN; Protocol PRN Reason: Other Last Admin: 07/22/17 05:45 Dose: 1 mg Morphine Sulfate (Morphine) 2 mg IVPUSH Q4H PRN PRN Reason: Pain Last Admin: 07/21/17 05:36 Dose: 2 mg Ondansetron HCl (Zofran) 4 mg IVPUSH Q3H PRN PRN Reason: Nausea/Vomiting Last Admin: 07/21/17 20:50 Dose: 4 mg Pantoprazole Sodium (Protonix Iv) 40 mg IVPUSH Q24H COUNTS INCLUDE 234 BEDS AT THE [facility] Last Admin: 07/21/17 11:54 Dose: 40 mg Sodium Chloride (Saline Flush) 10 ml FLUSH ASDIRECTED PRN PRN Reason: Keep Vein Open Last Admin: 07/19/17 22:52 Dose: 10 ml Sodium Chloride (Saline Flush) 2.5 ml FLUSH ASDIRECTED PRN PRN Reason: Keep Vein Open Last Admin: 07/19/17 22:51 Dose: 2.5 ml Thiamine HCl (Vitamin B-1) 100 mg PO DAILY COUNTS INCLUDE 234 BEDS AT THE [facility] Last Admin: 07/21/17 08:02 Dose: 100 mg Discontinued Medications Fluconazole (Diflucan) 150 mg PO ONETIME ONE Stop: 07/21/17 17:00 Last Admin: 07/21/17 18:06 Dose: 150 mg Sodium Chloride (Normal Saline) 1,000 mls @ 999 mls/hr IV STAT ONE Stop: 07/19/17 23:48 Last Admin: 07/19/17 22:51 Dose: 999 mls/hr Piperacillin Sod/Tazobactam (Sod 3.375 gm/ Sodium Chloride) 50 mls @ 100 mls/ hr IV ONETIME ONE Stop: 07/20/17 00:02 Last Admin: 07/19/17 23:47 Dose: 100 mls/hr Sodium Chloride (Normal Saline) 1,000 mls @ 125 mls/hr IV STAT ONE Stop: 07/20/17 07:45 Last Admin: 07/19/17 23:52 Dose: 125 mls/hr Magnesium Sulfate 4 gm/ Premix 100 mls @ 50 mls/hr IV ONETIME ONE Stop: 07/21/17 14:46 Last Admin: 07/21/17 14:41 Dose: 50 mls/hr Ketorolac Tromethamine (Toradol) 30 mg IVPUSH ONETIME ONE Stop: 07/19/17 22:24 Last Admin: 07/19/17 22:53 Dose: 30 mg Morphine Sulfate (Morphine) 2 mg IVPUSH Q2H PRN PRN Reason: Pain Last Admin: 07/20/17 02:29 Dose: 2 mg Ondansetron HCl (Zofran) 4 mg IVPUSH ONETIME ONE Stop: 07/19/17 22:24 Last Admin: 07/19/17 22:52 Dose: 4 mg Potassium Chloride (Klor-Con M20) 40 meq PO ONETIME ONE Stop: 07/20/17 02:15 Last Admin: 07/20/17 02:29 Dose: 40 meq Potassium Chloride (Klor-Con M20) 40 meq PO ONETIME ONE Stop: 07/20/17 12:28 Last Admin: 07/20/17 12:41 Dose: 40 meq Potassium Chloride (Klor-Con M20) 40 meq PO ONETIME ONE Stop: 07/21/17 11:39 Last Admin: 07/21/17 11:54 Dose: 40 meq Sodium Phosphate (Neutra-Phos) 250 mg PO QID [facility] Stop: 07/21/17 23:59 Last Admin: 07/21/17 17:37 Dose: 250 mg - Exam General: Alert, Oriented, Cooperative, No Acute Distress Neck: Supple Lungs: Clear to Auscultation, Normal Respiratory Effort Cardiovascular: Regular Rate, Regular Rhythm GI/Abdominal Exam: Normal Bowel Sounds, Soft, Tender (diffuse) Back Exam: Full Range of Motion, CVA Tenderness (L), CVA Tenderness (R) Extremities: Normal Inspection, Normal Range of Motion, Non-Tender, No Pedal Edema, Normal Capillary Refill Neurological: No New Focal Deficit Psy/Mental Status: Alert, Normal Affect, Normal Mood - Problem List & Annotations (1) Pyelonephritis SNOMED Code(s): 32206040 Code(s): N12 - TUBULO-INTERSTITIAL NEPHRITIS, NOT SPCF ACUTE OR CHRONIC Status: Suspected Current Visit: Yes (2) Elevated liver function tests SNOMED Code(s): 388694109 Code(s): R79.89 - OTHER SPECIFIED ABNORMAL FINDINGS OF BLOOD CHEMISTRY Status: Acute Current Visit: Yes (3) Hepatomegaly SNOMED Code(s): 65244758 Code(s): R16.0 - HEPATOMEGALY, NOT ELSEWHERE CLASSIFIED Status: Acute Current Visit: Yes (4) Right upper quadrant pain SNOMED Code(s): 354095989 Code(s): R10.11 - RIGHT UPPER QUADRANT PAIN Status: Acute Current Visit: Yes (5) Alcohol abuse SNOMED Code(s): 48084644 Code(s): F10.10 - ALCOHOL ABUSE, UNCOMPLICATED Status: Acute Current Visit: Yes (6) Alcohol withdrawal SNOMED Code(s): 257975137 Code(s): F10.239 - ALCOHOL DEPENDENCE WITH WITHDRAWAL, UNSPECIFIED Status: Acute Current Visit: Yes Qualifiers: Complication of substance-induced condition: uncomplicated Qualified Code(s ): F10.230 - Alcohol dependence with withdrawal, uncomplicated - Problem List Review Problem List Initiated/Reviewed/Updated: Yes - Plan Plan:: This 37 yo female admitted for alcohol withdrawal and UTI 1. Alcohol withdrawal: Stable, continues to have tremors, CIWAA scores 8-12. Receivig Ativan as ordered per CIWA protocol, Continue thiamine and folic acid. Monitoring phosphorus and Mg. 2. UTI: suspect pyeloneprhtiis, on Zosyn. Leukocytosis slow to resolve, 17,000 today. UC tracy sensitive E coli. Pain continues to abdomen, diffusely, does have RUQ tenderness. No imaging evidence of cholecystitis, but may need to consult surgery tomorrow if leukocytosis continues. 3. Elevated liver enzymes: Improving slowly. likely due to ETOH, Hepatitis panel pending. VTE prophylaxis: SCDs due to risk of GI bleeding from alcohol abuse. Dispo: Change to inpatient status today due to continued leukocytosis and alcohol withdrawl.
[2017-07-22] MEDS: Thiamine 100 MG Tab PO SCH (08:05)
[2017-07-22] MEDS: Morphine 2 MG/ML Syringe IVPUSH PRN (08:05)
[2017-07-22] MEDS: Folic Acid 1 MG Tab PO SCH (08:05)
[2017-07-22] MEDS: Pantoprazole 40 MG Vial IVPUSH SCH (13:36)
--- NOTE | 2017-07-22 13:40 | CT ---
EXAM DATE: 07/22/17 PATIENT'S AGE: 37 Patient: JOSÉ MIGUEL YOST Facility: [place], [place] Site . Site : 1980 Study: CT Abdomen/Pelvis [id number]/2/2018 10:43:03 PM Ordering Physician: Doctor Avila Final Report: INDICATION: Abdominal pain, leg pain and numbness, nausea, vomiting, dizziness TECHNIQUE: CT abdomen and pelvis acquired with 90 cc Isovue 300 IV contrast. COMPARISON: None FINDINGS: Lower chest: Unremarkable. Liver: Hepatic steatosis. The liver measures 20.0 cm in length. No focal hepatic mass. Spleen: Unremarkable. Pancreas: Unremarkable. Gallbladder and bile ducts: Unremarkable. Adrenal glands: Unremarkable. Kidneys: Unremarkable. GI tract: Unremarkable. Appendix is surgically absent. Vascular structures: Unremarkable. Lymph nodes: Unremarkable. Miscellaneous: Unremarkable. No free air or significant free fluid. Pelvic Organs: Unremarkable. Bones: Unremarkable for age. IMPRESSION: 1. Hepatic steatosis and hepatomegaly. 2. Status post appendectomy. Please note that all CT scans at this facility use dose modulation, iterative reconstruction, and/or weight-based dosing when appropriate to reduce radiation dose to as low as reasonably achievable. Dictated by Madelin Graham MD @ Jul 19 2017 11:00PM (Electronic Signature) Report Signed by Proxy. MTDD
--- NOTE | 2017-07-22 13:41 | CR ---
EXAM DATE: 07/22/17 PATIENT'S AGE: 37 Patient: JOSÉ MIGUEL YOST Facility: [place], [place] Site . Site : 1980 Study: XRay Chest [id number]/2/2018 10:47:43 PM Ordering Physician: Doctor Avila Final Report: INDICATION: cough x2 wks TECHNIQUE: Chest 2 views. COMPARISON: None. FINDINGS: Cardiovascular and mediastinum: Heart size and vasculature are normal in caliber and appearance. Mediastinum is within normal limits. Lungs and pleural spaces: Lungs are clear. No sign of infiltrate or mass. No sign of pleural effusion. No pneumothorax. Bones and soft tissues: No significant findings. IMPRESSION: Unremarkable chest. Dictated by: Joel Evangelista MD @ 07/19/2017 23:06:04 (Electronic Signature) Report Signed by Proxy. STIVEN
--- NOTE | 2017-07-22 13:54 | US ---
EXAM DATE: 07/22/17 PATIENT'S AGE: 37 Patient: JOSÉ MIGUEL YOST Facility: [place], [place] Site . Site : 1980 Study: US Abdomen Right RUQ-07/20/2017 12:52:31 AM Ordering Physician: Doctor Avila Final Report: INDICATION: Abdomen pain TECHNIQUE: Ultrasound abdomen limited. Sonographic images of the right upper quadrant were obtained using bolden-scale and color Doppler images. COMPARISON: CT abdomen pelvis July 19, 2017. FINDINGS: LIVER: Diffusely echogenic consistent with fatty infiltration. Enlarged measuring at least 20 cm in length. No masses. No intrahepatic biliary dilatation. GALLBLADDER: Gallbladder sludge is present. No stones. Normal wall thickness. No pericholecystic fluid. COMMON BILE DUCT: 3 mm. PANCREAS: Normal. RIGHT KIDNEY: Normal in size. Normal echotexture and cortex. No masses, stones, or hydronephrosis. VASCULATURE: Proximal abdominal aorta and IVC are normal. IMPRESSION: Hepatic steatosis and gallbladder sludge. No further signs of cholecystitis or other abnormality to explain right upper quadrant pain. Dictated by Yves Villavicencio MD @ Jul 20 2017 12:59AM (Electronic Signature) Report Signed by Proxy. STIVEN
[2017-07-22] MEDS: Ondansetron 4 MG/2 ML SDV IVPUSH PRN (14:08)
[2017-07-23] MEDS: Sodium Chloride 0.9% 1,000 ML IV SCH (01:04)
[2017-07-23] MEDS: LORazepam 2 MG/ML SDV IVPUSH PRN ×3 (01:48→14:13)
[2017-07-23 05:50] LABS: CHLORIDE,CL 103 mmol/L (98-110); SODIUM,NA 135 mmol/L (136-146)
[2017-07-23] MEDS: Piperacillin/Tazobactam 3.375 GM in Sodium Chloride 0.9% 50 ML IV SCH ×3 (05:52→19:18)
[2017-07-23] MEDS ORDERED: Magnesium Sulfate/Water 4 GM in Premix Bag 1 BAG IV ONE (07:38)
--- NOTE | 2017-07-23 07:39 | PCM.PN ---
- General Info Date of Service: 07/23/17 Admission Dx/Problem (Free Text): Admission Diagnosis/Problem Admission Diagnosis/Problem UTI, suspected pyelonephritis, Alcohol withdrawl Subjective Update: Alejandra is feeling very anxious this morning, she woke up hallucinating and became very anxious because of this. No chest pain. Have "numb abdomen still." Tolerating diet and drinking good fluids. No SOB. Functional Status: Reports: Pain Controlled, Tolerating Diet, Ambulating, Urinating - Review of Systems HEENT: Reports: No Symptoms. Denies: Headaches, Sore Throat Pulmonary: Reports: No Symptoms. Denies: Shortness of Breath, Cough, Sputum Cardiovascular: Reports: No Symptoms. Denies: Chest Pain, Edema Gastrointestinal: Reports: Abdominal Pain (all over, numb), Flatus. Denies: Nausea, Vomiting Genitourinary: Reports: Flank Pain. Denies: Dysuria, Frequency, Burning Musculoskeletal: Reports: No Symptoms Psychiatric: Reports: Anxiety, Hallucinations - Patient Data Vitals - Most Recent: Last Vital Signs Temp 97.4 F 07/23/17 04:00 Pulse 93 07/23/17 04:00 Resp 14 07/23/17 04:00 BP 124/83 07/23/17 04:00 Pulse Ox 96 07/23/17 04:00 Weight - Most Recent: 54.431 kg I&O - Last 24 Hours: Intake & Output 07/22/17 07/23/17 07/23/17 22:59 06:59 14:59 Intake Total 2327 1620 Output Total 950 1850 Balance 1377 -230 Lab Results Last 24 Hours: Laboratory Results - last 24 hr 07/23/17 07/23/17 Range/Units 04:57 04:57 WBC 14.46 H (4.0-11.0) K/uL RBC 3.44 L (4.30-5.90) M/uL Hgb 11.9 L (12.0-16.0) g/dL Hct 36.6 (36.0-46.0) % MCV 106.4 H (80.0-98.0) fL MCH 34.6 H (27.0-32.0) pg MCHC 32.5 (31.0-37.0) g/dL RDW Std Deviation 52.5 (28.0-62.0) fl RDW Coeff of Kj 14 (11.0-15.0) % Plt Count 446 H (150-400) K/uL MPV 10.80 (7.40-12.00) fL Add Manual Diff YES Neutrophils % (Manual) 77 (48.0-80.0) % Band Neutrophils % 3 % Lymphocytes % (Manual) 14 L (16.0-40.0) % Monocytes % (Manual) 5 (0.0-15.0) % Eosinophils % (Manual) 1 (0.0-7.0) % Nucleated RBC % 0.0 /100WBC Absolute Seg Neuts 11.1 H (1.4-5.7) Band Neutrophils # 0.4 Lymphocytes # (Manual) 2.0 (0.6-2.4) Monocytes # (Manual) 0.7 (0.0-0.8) Eosinophils # (Manual) 0.1 (0.0-0.7) Nucleated RBCs # 0 K/uL Sodium 135 L (136-146) mmol/L Potassium 4.2 (3.5-5.1) mmol/L Chloride 103 (98-110) mmol/L Carbon Dioxide 22 (21-31) mmol/L BUN 1 L (6.0-23.0) mg/dL Creatinine 0.5 L (0.6-1.5) mg/dL Est Cr Clr Drug Dosing 118.50 mL/min Estimated GFR (MDRD) > 60.0 ml/min Glucose 84 (60-110) mg/dL Calcium 8.9 (8.8-10.8) mg/dL Phosphorus 2.9 (2.4-4.7) mg/dL Magnesium 1.2 L (1.5-2.3) mEq/L Total Bilirubin 1.1 (0.1-1.5) mg/dL AST 172 H (5-40) IU/L ALT 60 H (8-54) IU/L Alkaline Phosphatase 167 H (40-150) Total Protein 6.3 (6.0-8.0) g/dL Albumin 3.4 L (3.5-5.0) g/dL Globulin 2.9 (2.0-3.5) g/dL Albumin/Globulin Ratio 1.2 L (1.3-2.8) Med Orders - Current: Current Medications Folic Acid (Folic Acid) 1 mg PO DAILY KEVIN Last Admin: 07/22/17 08:05 Dose: 1 mg Piperacillin Sod/Tazobactam (Sod 3.375 gm/ Sodium Chloride) 50 mls @ 100 mls/ hr IV Q6H [facility] Last Admin: 07/23/17 05:52 Dose: 100 mls/hr Sodium Chloride (Normal Saline) 1,000 mls @ 125 mls/hr IV ASDIRECTED [facility] Last Admin: 07/23/17 01:04 Dose: 125 mls/hr Magnesium Sulfate 4 gm/ Premix 100 mls @ 50 mls/hr IV ONETIME ONE Stop: 07/23/17 09:37 Lorazepam (Ativan) 0 mg IVPUSH Q4H PRN; Protocol PRN Reason: Other Last Admin: 07/23/17 06:13 Dose: 1 mg Morphine Sulfate (Morphine) 2 mg IVPUSH Q4H PRN PRN Reason: Pain Last Admin: 07/22/17 08:05 Dose: 2 mg Ondansetron HCl (Zofran) 4 mg IVPUSH Q3H PRN PRN Reason: Nausea/Vomiting Last Admin: 07/22/17 14:08 Dose: 4 mg Pantoprazole Sodium (Protonix Iv) 40 mg IVPUSH Q24H [facility] Last Admin: 07/22/17 13:36 Dose: 40 mg Sodium Chloride (Saline Flush) 10 ml FLUSH ASDIRECTED PRN PRN Reason: Keep Vein Open Last Admin: 07/19/17 22:52 Dose: 10 ml Sodium Chloride (Saline Flush) 2.5 ml FLUSH ASDIRECTED PRN PRN Reason: Keep Vein Open Last Admin: 07/19/17 22:51 Dose: 2.5 ml Thiamine HCl (Vitamin B-1) 100 mg PO DAILY [facility] Last Admin: 07/22/17 08:05 Dose: 100 mg Discontinued Medications Fluconazole (Diflucan) 150 mg PO ONETIME ONE Stop: 07/21/17 17:00 Last Admin: 07/21/17 18:06 Dose: 150 mg Sodium Chloride (Normal Saline) 1,000 mls @ 999 mls/hr IV STAT ONE Stop: 07/19/17 23:48 Last Admin: 07/19/17 22:51 Dose: 999 mls/hr Piperacillin Sod/Tazobactam (Sod 3.375 gm/ Sodium Chloride) 50 mls @ 100 mls/ hr IV ONETIME ONE Stop: 07/20/17 00:02 Last Admin: 07/19/17 23:47 Dose: 100 mls/hr Sodium Chloride (Normal Saline) 1,000 mls @ 125 mls/hr IV STAT ONE Stop: 07/20/17 07:45 Last Admin: 07/19/17 23:52 Dose: 125 mls/hr Magnesium Sulfate 4 gm/ Premix 100 mls @ 50 mls/hr IV ONETIME ONE Stop: 07/21/17 14:46 Last Admin: 07/21/17 14:41 Dose: 50 mls/hr Ketorolac Tromethamine (Toradol) 30 mg IVPUSH ONETIME ONE Stop: 07/19/17 22:24 Last Admin: 07/19/17 22:53 Dose: 30 mg Morphine Sulfate (Morphine) 2 mg IVPUSH Q2H PRN PRN Reason: Pain Last Admin: 07/20/17 02:29 Dose: 2 mg Ondansetron HCl (Zofran) 4 mg IVPUSH ONETIME ONE Stop: 07/19/17 22:24 Last Admin: 07/19/17 22:52 Dose: 4 mg Potassium Chloride (Klor-Con M20) 40 meq PO ONETIME ONE Stop: 07/20/17 02:15 Last Admin: 07/20/17 02:29 Dose: 40 meq Potassium Chloride (Klor-Con M20) 40 meq PO ONETIME ONE Stop: 07/20/17 12:28 Last Admin: 07/20/17 12:41 Dose: 40 meq Potassium Chloride (Klor-Con M20) 40 meq PO ONETIME ONE Stop: 07/21/17 11:39 Last Admin: 07/21/17 11:54 Dose: 40 meq Sodium Phosphate (Neutra-Phos) 250 mg PO QID [facility] Stop: 07/21/17 23:59 Last Admin: 07/21/17 17:37 Dose: 250 mg - Exam General: Alert, Oriented, Cooperative, No Acute Distress Neck: Supple Lungs: Clear to Auscultation, Normal Respiratory Effort Cardiovascular: Regular Rate, Regular Rhythm GI/Abdominal Exam: Normal Bowel Sounds, Soft, No Organomegaly, Tender ( palpation of stomach deep and patient sat very still without whincing and reported pain continued to abdomen, diffusely. as well as flank pain.). No: Guarding Back Exam: CVA Tenderness (L), CVA Tenderness (R) Extremities: Normal Inspection, Normal Range of Motion, Non-Tender, No Pedal Edema, Normal Capillary Refill Neurological: No New Focal Deficit Psy/Mental Status: Alert, Anxious, Hallucinations (no active hallucinations during interview, but patient describes them from earlier in the morning.) - Problem List & Annotations (1) Pyelonephritis SNOMED Code(s): 09341919 Code(s): N12 - TUBULO-INTERSTITIAL NEPHRITIS, NOT SPCF ACUTE OR CHRONIC Status: Suspected Current Visit: Yes (2) Elevated liver function tests SNOMED Code(s): 681234330 Code(s): R79.89 - OTHER SPECIFIED ABNORMAL FINDINGS OF BLOOD CHEMISTRY Status: Acute Current Visit: Yes (3) Hepatomegaly SNOMED Code(s): 14356634 Code(s): R16.0 - HEPATOMEGALY, NOT ELSEWHERE CLASSIFIED Status: Acute Current Visit: Yes (4) Right upper quadrant pain SNOMED Code(s): 578157831 Code(s): R10.11 - RIGHT UPPER QUADRANT PAIN Status: Acute Current Visit: Yes (5) Alcohol abuse SNOMED Code(s): 28447652 Code(s): F10.10 - ALCOHOL ABUSE, UNCOMPLICATED Status: Acute Current Visit: Yes (6) Alcohol withdrawal SNOMED Code(s): 313261150 Code(s): F10.239 - ALCOHOL DEPENDENCE WITH WITHDRAWAL, UNSPECIFIED Status: Acute Current Visit: Yes Qualifiers: Complication of substance-induced condition: uncomplicated Qualified Code(s ): F10.230 - Alcohol dependence with withdrawal, uncomplicated - Problem List Review Problem List Initiated/Reviewed/Updated: Yes - My Orders Last 24 Hours: My Active Orders 07/23/17 07:38 Magnesium Sulfate/Water [Magnesium Sulfate 4 GM in Water 100 ML] 4 gm Premix Bag 1 bag IV ONETIME - Plan Plan:: This 37 yo female admitted for alcohol withdrawal and UTI 1. Alcohol withdrawal: Having more anxiety today with hallucinations. Will add Valium 5 mg BID and Continue CIWAA protocol. CIWAA scores 8-14. Continue thiamine and folic acid daily. Monitoring phosphorus and Mg. Supplement IV Mag today. Spoke today about support system at home and the ability to continue sobriety upon discharge with outpatient resources. She reports daughter is a good support. Current boyfriend is showing he is likely not a good support and will push her into drinking alcohol again. Encouraged her to surround herself with good people who are her cheerleaders so she is able to continue with sobriety. Will provide her with resources for [facility], AA meeting in [place] and [employer]. 2. UTI: suspect pyeloneprhtiis, Continue Zosyn. Leukocytosis improving today to 14,000 today. UC tracy sensitive E coli. Pain continues to abdomen, diffusely but palpation elicits very little pain response. 3. Elevated liver enzymes: stabilizing. likely due to ETOH, Hepatitis panel pending. VTE prophylaxis: SCDs due to risk of GI bleeding from alcohol abuse. Dispo: 1-2 days if continued improvement is made.
[2017-07-23] MEDS ORDERED: LORazepam 2 MG/ML SDV IVPUSH ONE (08:03)
[2017-07-23] MEDS: Folic Acid 1 MG Tab PO SCH (09:34)
[2017-07-23] MEDS: Thiamine 100 MG Tab PO SCH (09:34)
[2017-07-23] MEDS: Pantoprazole 40 MG Vial IVPUSH SCH (13:10)
[2017-07-23] MEDS: Diazepam 5 MG Tab PO SCH ×2 (13:18→22:13)
[2017-07-24] MEDS: LORazepam 2 MG/ML SDV IVPUSH PRN ×2 (00:46→16:10)
[2017-07-24] MEDS: Piperacillin/Tazobactam 3.375 GM in Sodium Chloride 0.9% 50 ML IV SCH ×5 (00:47→23:12)
[2017-07-24 06:36] LABS: CHLORIDE,CL 101 mmol/L (98-110); SODIUM,NA 134 mmol/L (136-146)
[2017-07-24] MEDS: Thiamine 100 MG Tab PO SCH (08:11)
[2017-07-24] MEDS: Diazepam 5 MG Tab PO SCH ×2 (08:11→20:38)
[2017-07-24] MEDS: Folic Acid 1 MG Tab PO SCH (08:11)
--- NOTE | 2017-07-24 09:38 | PCM.PN ---
- General Info Date of Service: 07/24/17 Admission Dx/Problem (Free Text): Admission Diagnosis/Problem Admission Diagnosis/Problem UTI, suspected pyelonephritis, Alcohol withdrawl Subjective Update: Feeling much better today. No chest pain or SOB. Abdominal is improving. but feels constipated. Anxiety is much better today with addition of Xanax. Functional Status: Reports: Pain Controlled, Tolerating Diet, Ambulating, Urinating - Review of Systems General: Reports: No Symptoms. Denies: Fever, Weakness, Fatigue HEENT: Reports: No Symptoms. Denies: Contact Lenses, Headaches, Visual Changes Pulmonary: Reports: No Symptoms. Denies: Shortness of Breath Cardiovascular: Reports: No Symptoms. Denies: Chest Pain Gastrointestinal: Reports: Abdominal Pain (diffuse and some lower abdomen fullness.), Constipation, Flatus. Denies: Nausea, Vomiting Genitourinary: Reports: No Symptoms. Denies: Dysuria, Frequency, Burning Musculoskeletal: Reports: No Symptoms. Denies: Neck Pain Skin: Reports: No Symptoms Neurological: Reports: No Symptoms Psychiatric: Reports: No Symptoms - Patient Data Vitals - Most Recent: Last Vital Signs Temp 97.4 F 07/24/17 08:03 Pulse 93 07/24/17 08:03 Resp 18 07/24/17 08:03 BP 116/70 07/24/17 08:03 Pulse Ox 98 07/24/17 08:03 Weight - Most Recent: 54.431 kg I&O - Last 24 Hours: Intake & Output 07/23/17 07/24/17 07/24/17 22:59 06:59 14:59 Intake Total 750 500 50 Output Total 1150 Balance -400 500 50 Lab Results Last 24 Hours: Laboratory Results - last 24 hr 07/24/17 07/24/17 Range/Units 05:43 05:43 WBC 14.51 H (4.0-11.0) K/uL RBC 3.57 L (4.30-5.90) M/uL Hgb 12.3 (12.0-16.0) g/dL Hct 37.9 (36.0-46.0) % MCV 106.2 H (80.0-98.0) fL MCH 34.5 H (27.0-32.0) pg MCHC 32.5 (31.0-37.0) g/dL RDW Std Deviation 52.5 (28.0-62.0) fl RDW Coeff of Kj 14 (11.0-15.0) % Plt Count 475 H (150-400) K/uL MPV 11.10 (7.40-12.00) fL Add Manual Diff YES Neutrophils % (Manual) 70 (48.0-80.0) % Band Neutrophils % 3 % Lymphocytes % (Manual) 19 (16.0-40.0) % Monocytes % (Manual) 3 (0.0-15.0) % Eosinophils % (Manual) 5 (0.0-7.0) % Nucleated RBC % 0.0 /100WBC Absolute Seg Neuts 10.2 H (1.4-5.7) Band Neutrophils # 0.4 Lymphocytes # (Manual) 2.8 H (0.6-2.4) Monocytes # (Manual) 0.4 (0.0-0.8) Eosinophils # (Manual) 0.7 (0.0-0.7) Nucleated RBCs # 0 K/uL Sodium 134 L (136-146) mmol/L Potassium 4.7 (3.5-5.1) mmol/L Chloride 101 (98-110) mmol/L Carbon Dioxide 24 (21-31) mmol/L BUN 2 L (6.0-23.0) mg/dL Creatinine 0.6 (0.6-1.5) mg/dL Est Cr Clr Drug Dosing 98.75 mL/min Estimated GFR (MDRD) > 60.0 ml/min Glucose 83 (60-110) mg/dL Calcium 9.6 (8.8-10.8) mg/dL Phosphorus 3.5 (2.4-4.7) mg/dL Magnesium 1.6 (1.5-2.3) mEq/L Total Bilirubin 1.2 (0.1-1.5) mg/dL AST 157 H (5-40) IU/L ALT 56 H (8-54) IU/L Alkaline Phosphatase 193 H (40-150) Total Protein 7.1 (6.0-8.0) g/dL Albumin 3.7 (3.5-5.0) g/dL Globulin 3.4 (2.0-3.5) g/dL Albumin/Globulin Ratio 1.1 L (1.3-2.8) Med Orders - Current: Current Medications Diazepam (Valium.) 5 mg PO BID [facility] Last Admin: 07/24/17 08:11 Dose: 5 mg Folic Acid (Folic Acid) 1 mg PO DAILY [facility] Last Admin: 07/24/17 08:11 Dose: 1 mg Piperacillin Sod/Tazobactam (Sod 3.375 gm/ Sodium Chloride) 50 mls @ 100 mls/ hr IV Q6H [facility] Last Admin: 07/24/17 07:09 Dose: 100 mls/hr Lorazepam (Ativan) 0 mg IVPUSH Q4H PRN; Protocol PRN Reason: Other Last Admin: 07/24/17 00:46 Dose: 1 mg Morphine Sulfate (Morphine) 2 mg IVPUSH Q4H PRN PRN Reason: Pain Last Admin: 07/22/17 08:05 Dose: 2 mg Ondansetron HCl (Zofran) 4 mg IVPUSH Q3H PRN PRN Reason: Nausea/Vomiting Last Admin: 07/22/17 14:08 Dose: 4 mg Pantoprazole Sodium (Protonix Iv) 40 mg IVPUSH Q24H [facility] Last Admin: 07/23/17 13:10 Dose: 40 mg Sodium Chloride (Saline Flush) 10 ml FLUSH ASDIRECTED PRN PRN Reason: Keep Vein Open Last Admin: 07/19/17 22:52 Dose: 10 ml Sodium Chloride (Saline Flush) 2.5 ml FLUSH ASDIRECTED PRN PRN Reason: Keep Vein Open Last Admin: 07/19/17 22:51 Dose: 2.5 ml Thiamine HCl (Vitamin B-1) 100 mg PO DAILY [facility] Last Admin: 07/24/17 08:11 Dose: 100 mg Discontinued Medications Fluconazole (Diflucan) 150 mg PO ONETIME ONE Stop: 07/21/17 17:00 Last Admin: 07/21/17 18:06 Dose: 150 mg Sodium Chloride (Normal Saline) 1,000 mls @ 999 mls/hr IV STAT ONE Stop: 07/19/17 23:48 Last Admin: 07/19/17 22:51 Dose: 999 mls/hr Piperacillin Sod/Tazobactam (Sod 3.375 gm/ Sodium Chloride) 50 mls @ 100 mls/ hr IV ONETIME ONE Stop: 07/20/17 00:02 Last Admin: 07/19/17 23:47 Dose: 100 mls/hr Sodium Chloride (Normal Saline) 1,000 mls @ 125 mls/hr IV STAT ONE Stop: 07/20/17 07:45 Last Admin: 07/19/17 23:52 Dose: 125 mls/hr Sodium Chloride (Normal Saline) 1,000 mls @ 125 mls/hr IV ASDIRECTED [facility] Last Admin: 07/23/17 01:04 Dose: 125 mls/hr Magnesium Sulfate 4 gm/ Premix 100 mls @ 50 mls/hr IV ONETIME ONE Stop: 07/21/17 14:46 Last Admin: 07/21/17 14:41 Dose: 50 mls/hr Magnesium Sulfate 4 gm/ Premix 100 mls @ 50 mls/hr IV ONETIME ONE Stop: 07/23/17 09:37 Last Admin: 07/23/17 09:35 Dose: 50 mls/hr Ketorolac Tromethamine (Toradol) 30 mg IVPUSH ONETIME ONE Stop: 07/19/17 22:24 Last Admin: 07/19/17 22:53 Dose: 30 mg Lorazepam (Ativan) 1 mg IVPUSH ONETIME ONE Stop: 07/23/17 08:04 Last Admin: 07/23/17 09:35 Dose: 1 mg Morphine Sulfate (Morphine) 2 mg IVPUSH Q2H PRN PRN Reason: Pain Last Admin: 07/20/17 02:29 Dose: 2 mg Ondansetron HCl (Zofran) 4 mg IVPUSH ONETIME ONE Stop: 07/19/17 22:24 Last Admin: 07/19/17 22:52 Dose: 4 mg Potassium Chloride (Klor-Con M20) 40 meq PO ONETIME ONE Stop: 07/20/17 02:15 Last Admin: 07/20/17 02:29 Dose: 40 meq Potassium Chloride (Klor-Con M20) 40 meq PO ONETIME ONE Stop: 07/20/17 12:28 Last Admin: 07/20/17 12:41 Dose: 40 meq Potassium Chloride (Klor-Con M20) 40 meq PO ONETIME ONE Stop: 07/21/17 11:39 Last Admin: 07/21/17 11:54 Dose: 40 meq Sodium Phosphate (Neutra-Phos) 250 mg PO QID [facility] Stop: 07/21/17 23:59 Last Admin: 07/21/17 17:37 Dose: 250 mg - Exam General: Alert, Oriented, Cooperative, No Acute Distress Neck: Supple Lungs: Clear to Auscultation, Normal Respiratory Effort Cardiovascular: Regular Rate, Regular Rhythm GI/Abdominal Exam: Normal Bowel Sounds, Soft, No Organomegaly, No Distention, No Abnormal Bruit, No Mass, Pelvis Stable, Tender (diffuse, improving) Back Exam: Normal Inspection, Full Range of Motion Neurological: No New Focal Deficit Psy/Mental Status: Alert, Normal Affect, Normal Mood - Problem List & Annotations (1) Pyelonephritis SNOMED Code(s): 92560752 Code(s): N12 - TUBULO-INTERSTITIAL NEPHRITIS, NOT SPCF ACUTE OR CHRONIC Status: Suspected Current Visit: Yes (2) Elevated liver function tests SNOMED Code(s): 963205056 Code(s): R79.89 - OTHER SPECIFIED ABNORMAL FINDINGS OF BLOOD CHEMISTRY Status: Acute Current Visit: Yes (3) Hepatomegaly SNOMED Code(s): 06638026 Code(s): R16.0 - HEPATOMEGALY, NOT ELSEWHERE CLASSIFIED Status: Acute Current Visit: Yes (4) Right upper quadrant pain SNOMED Code(s): 900460282 Code(s): R10.11 - RIGHT UPPER QUADRANT PAIN Status: Acute Current Visit: Yes (5) Alcohol abuse SNOMED Code(s): 23582829 Code(s): F10.10 - ALCOHOL ABUSE, UNCOMPLICATED Status: Acute Current Visit: Yes (6) Alcohol withdrawal SNOMED Code(s): 573406103 Code(s): F10.239 - ALCOHOL DEPENDENCE WITH WITHDRAWAL, UNSPECIFIED Status: Acute Current Visit: Yes Qualifiers: Complication of substance-induced condition: uncomplicated Qualified Code(s ): F10.230 - Alcohol dependence with withdrawal, uncomplicated - Problem List Review Problem List Initiated/Reviewed/Updated: Yes - My Orders Last 24 Hours: My Active Orders 07/23/17 12:15 Diazepam [Valium] 5 mg PO BID 07/25/17 05:11 CBC WITH AUTO DIFF [HEME] AM COMPREHENSIVE METABOLIC PN,CMP [CHEM] AM MAGNESIUM [CHEM] AM PHOSPHORUS [CHEM] AM 07/26/17 05:11 CBC WITH AUTO DIFF [HEME] AM COMPREHENSIVE METABOLIC PN,CMP [CHEM] AM MAGNESIUM [CHEM] AM PHOSPHORUS [CHEM] AM - Plan Plan:: This 37 yo female admitted for alcohol withdrawal and UTI 1. Alcohol withdrawal: Anxiety much better today with added Valium 5 mg BID and Continue CIWAA protocol. CIWAA scores 8-14. Continue thiamine and folic acid daily. Monitoring phosphorus and Mg. Encouraged her to surround herself with good people who are her cheerleaders so she is able to continue with sobriety. Will provide her with resources for [facility], AA meeting in [place] and [employer]. 2. UTI: suspect pyelonephritis, Continue Zosyn. Leukocytosis 14,000. UC tracy sensitive E coli. Constipated, will give dulcolax and Colace today 3. Elevated liver enzymes: stabilizing. likely due to ETOH, Hepatitis panel pending. VTE prophylaxis: SCDs due to risk of GI bleeding from alcohol abuse. Dispo: 1-2 days if continued improvement is made.
[2017-07-24] MEDS ORDERED: Bisacodyl 10 MG Supp RECTAL ONE (09:39)
[2017-07-24] MEDS: Docusate Sodium 100 MG Cap PO SCH ×2 (11:13→20:38)
[2017-07-24] MEDS: Pantoprazole 40 MG Vial IVPUSH SCH (12:43)
[2017-07-25] MEDS: Ondansetron 4 MG/2 ML SDV IVPUSH PRN (05:02)
[2017-07-25] MEDS: Piperacillin/Tazobactam 3.375 GM in Sodium Chloride 0.9% 50 ML IV SCH ×2 (05:05→11:43)
[2017-07-25 06:30] LABS: CHLORIDE,CL 100 mmol/L (98-110); SODIUM,NA 135 mmol/L (136-146)
[2017-07-25] MEDS ORDERED: Magnesium Sulfate/Water 4 GM in Premix Bag 1 BAG IV ONE (08:01)
[2017-07-25] MEDS: Folic Acid 1 MG Tab PO SCH (09:48)
[2017-07-25] MEDS: Diazepam 5 MG Tab PO SCH (09:48)
[2017-07-25] MEDS: Thiamine 100 MG Tab PO SCH (09:48)
[2017-07-25] MEDS: Docusate Sodium 100 MG Cap PO SCH (09:48)
--- NOTE | 2017-07-25 09:55 | PCM.DCSUM1 ---
Discharge Summary - Hospital Course Brief History: 37 yo female who presents to the ED feeling ill. She reports fevers, chills and myalgias. She reports back pain as well as abdminal numbness. She reports nausea and vomiting. She has not been able to eat anything for a day. She admits to drinking a large bottle of fireball a day. She reports when she tries to cut back she gets sick. She wants to quit drinking. WBC was 20,440, Lactate of 2.8, Total bilirubin of 2.1, AST 181, ALT 68, Alk phos 235. CT abdomen reports Hepatic steatosi and hepatomegaly. RUQ ultrasound reported gallbladder sludge but no further signs of cholecystitis. - Discharge Data Discharge Date: 07/25/17 Discharge Disposition: Home, Self-Care 01 Condition: Good - Discharge Diagnosis/Problem(s) (1) Pyelonephritis SNOMED Code(s): 92285020 ICD Code: N12 - TUBULO-INTERSTITIAL NEPHRITIS, NOT SPCF ACUTE OR CHRONIC Status: Suspected Current Visit: Yes (2) Elevated liver function tests SNOMED Code(s): 816121520 ICD Code: R79.89 - OTHER SPECIFIED ABNORMAL FINDINGS OF BLOOD CHEMISTRY Status: Acute Current Visit: Yes (3) Hepatomegaly SNOMED Code(s): 34800493 ICD Code: R16.0 - HEPATOMEGALY, NOT ELSEWHERE CLASSIFIED Status: Acute Current Visit: Yes (4) Right upper quadrant pain SNOMED Code(s): 058300568 ICD Code: R10.11 - RIGHT UPPER QUADRANT PAIN Status: Acute Current Visit : Yes (5) Alcohol abuse SNOMED Code(s): 56405467 ICD Code: F10.10 - ALCOHOL ABUSE, UNCOMPLICATED Status: Acute Current Visit: Yes (6) Alcohol withdrawal SNOMED Code(s): 636654036 ICD Code: F10.239 - ALCOHOL DEPENDENCE WITH WITHDRAWAL, UNSPECIFIED Status : Acute Current Visit: Yes Qualifiers: Complication of substance-induced condition: uncomplicated Qualified Code(s ): F10.230 - Alcohol dependence with withdrawal, uncomplicated - Patient Instructions Diet: GI Soft/Low Residue/Low Fiber (low fat) Activity: As Tolerated Driving: Do Not Drive Showering/Bathing: May Shower Notify Provider of: Fever, Increased Pain, Swelling and Redness, Drainage, Nausea and/or Vomiting Other/Special Instructions: Provide AA meeting lists, [facility] program and Human resources. - Discharge Plan Prescriptions/Med Rec: Amoxicillin/Potassium Clav [Augmentin 875-125 Tablet] 1 each PO BID #16 tablet Diazepam [Valium] 5 mg PO BID PRN #15 tablet PRN Reason: Anxiety Folic Acid 1 mg PO DAILY #60 tablet Multivitamin [Multi-Vitamin Daily] 1 each PO DAILY #60 tablet Thiamine [Vitamin B-1] 100 mg PO DAILY #60 tablet Home Medications: Home Meds Amoxicillin/Potassium Clav [Augmentin 875-125 Tablet] 1 each PO BID #16 tablet 07/25/17 [Rx] Diazepam [Valium] 5 mg PO BID PRN #15 tablet 07/25/17 [Rx] Folic Acid 1 mg PO DAILY #60 tablet 07/25/17 [Rx] Multivitamin [Multi-Vitamin Daily] 1 each PO DAILY #60 tablet 07/25/17 [Rx] Thiamine [Vitamin B-1] 100 mg PO DAILY #60 tablet 07/25/17 [Rx] Patient Handouts: Alcohol Use Disorder, Amoxicillin; Clavulanic Acid tablets, Pyelonephritis, Adult, [id number], Chewable Multivitamin with Minerals and Iron formulations, Thiamine, Vitamin B1 tablets, Diazepam tablets, Folic Acid, Vitamin B9 tablets Referrals: [facility] [Outside] Roxane Wills MD [Physician] - 07/30/17 1:30 pm Eugenio Salmeron MD [Resident] - 08/06/17 2:30 pm - Discharge Summary/Plan Comment DC Time >30 min.: No Discharge Summary/Plan Comment: Discharge Diagnoses Suspected Pyelonepthritis, tracy sensitive E coli Alcohol Withdrawal Hx Alcohol abuse 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 Leukocytosis noted on admission to be 20,000. This slowly improved to 13, 000 today, but she has continued to show good improvement and has been afebrile. UC returned tracy sensitive E coli. Zosyn continued. She was treated with [facility] protocol with Valium and Ativan and has done well. We discussed support at home, which boyfriend has been present and supportive the last two days. He is very eager for her to get healthy, he relates to his drug addiction with opiates after 24 surgeries, he currently is clean from them. She declines inpatient treatment for alcohol abuse. We will provide her with AA meetings, [facility] and human service addiction help resources to help her with continue sobriety. Today she is feeling much better and is eating better. She feels Valium takes the edge off and is longer lasting than Ativan. I will precsribe this to her for short term. We discussed the use of this and alcohol is absolutely contraindicated so if she were to start drinking again, these can not be taken together and should be appropriately discarded. Her boyfriend and he assured me she is going to try everything not to drink. The house has been cleared of alcohol. She was encouraged to stay out of situations where alcohol is present, including eating at restaurants due to the alcohol until she is further along and more confident in her sobriety. She continues to have some early satiety and fullness/heartburn after eating, which may be related to gallbladder sludge and possible biliary diskinesia. I encouraged low fat diet and will arrange follow up with surgery, Dr Wills. Again relayed to her, that if she is drinking no surgery will be scheduled if that is what is needed. Also during her stay, Dr Begum noted on admission L breast lump. She will follow up with PCP regarding this and will need further imaging. So today she will be sent home with 15 tabs of valium 5 mg BID PRN for anxiety, alcohol withdrawal. She will also be continued on Augmentin 875 BID for 8 more days, completing a total of 14 day course for pyelonephritis. She is to follow up as scheduled with PCP and general surgery. She is to return to ED or clinic if concerns should arise. - General Info Date of Service: 07/25/17 Admission Dx/Problem (Free Text: Admission Diagnosis/Problem Admission Diagnosis/Problem UTI, suspected pyelonephritis, Alcohol withdrawl Subjective Update: Doing well, just got out of the shower and is feeling well. Ready to be discharged today. No fevers. Pain is much better. [place] a little ill last night after eating pizza. Again educated on low fat bland foods are going to be best with possible biliary diskinesia until she is evaluated by general surgery.Boyfriend at bedside supportive and caring asking pertinent questions. Functional Status: Reports: Pain Controlled, Tolerating Diet, Ambulating, Urinating - Review of Systems General: Reports: No Symptoms. Denies: Fever, Weakness, Fatigue HEENT: Reports: No Symptoms. Denies: Sore Throat, Visual Changes Pulmonary: Reports: No Symptoms. Denies: Shortness of Breath, Cough, Sputum Cardiovascular: Reports: No Symptoms. Denies: Chest Pain, Edema Gastrointestinal: Reports: Other (early satiety.). Denies: Abdominal Pain, Nausea, Vomiting Genitourinary: Reports: No Symptoms. Denies: Dysuria, Frequency, Burning Musculoskeletal: Reports: No Symptoms Neurological: Reports: No Symptoms. Denies: Confusion Psychiatric: Reports: No Symptoms. Denies: Confusion - Patient Data Vitals - Most Recent: Last Vital Signs Temp 96.3 F 07/25/17 07:00 Pulse 90 07/25/17 07:00 Resp 18 07/25/17 07:00 BP 105/60 07/25/17 07:00 Pulse Ox 100 07/25/17 07:00 Weight - Most Recent: 54.431 kg I&O - Last 24 hours: Intake & Output 07/24/17 07/25/17 07/25/17 22:59 06:59 14:59 Intake Total 650 300 Output Total 650 550 Balance 0 -250 Lab Results - Last 24 hrs: Laboratory Results - last 24 hr 07/25/17 07/25/17 Range/Units 05:33 05:33 WBC 13.17 H (4.0-11.0) K/uL RBC 3.72 L (4.30-5.90) M/uL Hgb 13.0 (12.0-16.0) g/dL Hct 39.6 (36.0-46.0) % MCV 106.5 H (80.0-98.0) fL MCH 34.9 H (27.0-32.0) pg MCHC 32.8 (31.0-37.0) g/dL RDW Std Deviation 53.1 (28.0-62.0) fl RDW Coeff of Kj 14 (11.0-15.0) % Plt Count 452 H (150-400) K/uL MPV 11.30 (7.40-12.00) fL Add Manual Diff YES Neutrophils % (Manual) 61 (48.0-80.0) % Band Neutrophils % 6 % Lymphocytes % (Manual) 27 (16.0-40.0) % Monocytes % (Manual) 1 (0.0-15.0) % Eosinophils % (Manual) 5 (0.0-7.0) % Nucleated RBC % 0.0 /100WBC Absolute Seg Neuts 8.0 H (1.4-5.7) Band Neutrophils # 0.8 Lymphocytes # (Manual) 3.6 H (0.6-2.4) Monocytes # (Manual) 0.1 (0.0-0.8) Eosinophils # (Manual) 0.7 (0.0-0.7) Nucleated RBCs # 0 K/uL Sodium 135 L (136-146) mmol/L Potassium 4.4 (3.5-5.1) mmol/L Chloride 100 (98-110) mmol/L Carbon Dioxide 24 (21-31) mmol/L BUN 2 L (6.0-23.0) mg/dL Creatinine 0.6 (0.6-1.5) mg/dL Est Cr Clr Drug Dosing 98.75 mL/min Estimated GFR (MDRD) > 60.0 ml/min Glucose 91 (60-110) mg/dL Calcium 9.7 (8.8-10.8) mg/dL Phosphorus 3.3 (2.4-4.7) mg/dL Magnesium 1.3 L (1.5-2.3) mEq/L Total Bilirubin 1.3 (0.1-1.5) mg/dL AST 175 H (5-40) IU/L ALT 60 H (8-54) IU/L Alkaline Phosphatase 191 H (40-150) Total Protein 7.1 (6.0-8.0) g/dL Albumin 3.7 (3.5-5.0) g/dL Globulin 3.4 (2.0-3.5) g/dL Albumin/Globulin Ratio 1.1 L (1.3-2.8) Med Orders - Current: Current Medications Diazepam (Valium.) 5 mg PO BID [facility] Last Admin: 07/25/17 09:48 Dose: 5 mg Docusate Sodium (Colace) 100 mg PO BID [facility] Last Admin: 07/25/17 09:48 Dose: 100 mg Folic Acid (Folic Acid) 1 mg PO DAILY [facility] Last Admin: 07/25/17 09:48 Dose: 1 mg Piperacillin Sod/Tazobactam (Sod 3.375 gm/ Sodium Chloride) 50 mls @ 100 mls/ hr IV Q6H [facility] Last Admin: 07/25/17 05:05 Dose: 100 mls/hr Magnesium Sulfate 4 gm/ Premix 100 mls @ 50 mls/hr IV ONETIME ONE Stop: 07/25/17 10:00 Last Admin: 07/25/17 09:48 Dose: 50 mls/hr Lorazepam (Ativan) 0 mg IVPUSH Q4H PRN; Protocol PRN Reason: Other Last Admin: 07/24/17 16:10 Dose: 1 mg Morphine Sulfate (Morphine) 2 mg IVPUSH Q4H PRN PRN Reason: Pain Last Admin: 07/22/17 08:05 Dose: 2 mg Ondansetron HCl (Zofran) 4 mg IVPUSH Q3H PRN PRN Reason: Nausea/Vomiting Last Admin: 07/25/17 05:02 Dose: 4 mg Pantoprazole Sodium (Protonix Iv) 40 mg IVPUSH Q24H [facility] Last Admin: 07/24/17 12:43 Dose: 40 mg Sodium Chloride (Saline Flush) 10 ml FLUSH ASDIRECTED PRN PRN Reason: Keep Vein Open Last Admin: 07/19/17 22:52 Dose: 10 ml Sodium Chloride (Saline Flush) 2.5 ml FLUSH ASDIRECTED PRN PRN Reason: Keep Vein Open Last Admin: 07/19/17 22:51 Dose: 2.5 ml Thiamine HCl (Vitamin B-1) 100 mg PO DAILY [facility] Last Admin: 07/25/17 09:48 Dose: 100 mg Discontinued Medications Bisacodyl (Dulcolax) 10 mg RECTAL ONETIME ONE Stop: 07/24/17 09:40 Last Admin: 07/24/17 11:15 Dose: 10 mg Fluconazole (Diflucan) 150 mg PO ONETIME ONE Stop: 07/21/17 17:00 Last Admin: 07/21/17 18:06 Dose: 150 mg Sodium Chloride (Normal Saline) 1,000 mls @ 999 mls/hr IV STAT ONE Stop: 07/19/17 23:48 Last Admin: 07/19/17 22:51 Dose: 999 mls/hr Piperacillin Sod/Tazobactam (Sod 3.375 gm/ Sodium Chloride) 50 mls @ 100 mls/ hr IV ONETIME ONE Stop: 07/20/17 00:02 Last Admin: 07/19/17 23:47 Dose: 100 mls/hr Sodium Chloride (Normal Saline) 1,000 mls @ 125 mls/hr IV STAT ONE Stop: 07/20/17 07:45 Last Admin: 07/19/17 23:52 Dose: 125 mls/hr Sodium Chloride (Normal Saline) 1,000 mls @ 125 mls/hr IV ASDIRECTED [facility] Last Admin: 07/23/17 01:04 Dose: 125 mls/hr Magnesium Sulfate 4 gm/ Premix 100 mls @ 50 mls/hr IV ONETIME ONE Stop: 07/21/17 14:46 Last Admin: 07/21/17 14:41 Dose: 50 mls/hr Magnesium Sulfate 4 gm/ Premix 100 mls @ 50 mls/hr IV ONETIME ONE Stop: 07/23/17 09:37 Last Admin: 07/23/17 09:35 Dose: 50 mls/hr Ketorolac Tromethamine (Toradol) 30 mg IVPUSH ONETIME ONE Stop: 07/19/17 22:24 Last Admin: 07/19/17 22:53 Dose: 30 mg Lorazepam (Ativan) 1 mg IVPUSH ONETIME ONE Stop: 07/23/17 08:04 Last Admin: 07/23/17 09:35 Dose: 1 mg Morphine Sulfate (Morphine) 2 mg IVPUSH Q2H PRN PRN Reason: Pain Last Admin: 07/20/17 02:29 Dose: 2 mg Ondansetron HCl (Zofran) 4 mg IVPUSH ONETIME ONE Stop: 07/19/17 22:24 Last Admin: 07/19/17 22:52 Dose: 4 mg Potassium Chloride (Klor-Con M20) 40 meq PO ONETIME ONE Stop: 07/20/17 02:15 Last Admin: 07/20/17 02:29 Dose: 40 meq Potassium Chloride (Klor-Con M20) 40 meq PO ONETIME ONE Stop: 07/20/17 12:28 Last Admin: 07/20/17 12:41 Dose: 40 meq Potassium Chloride (Klor-Con M20) 40 meq PO ONETIME ONE Stop: 07/21/17 11:39 Last Admin: 07/21/17 11:54 Dose: 40 meq Sodium Phosphate (Neutra-Phos) 250 mg PO QID KEVIN Stop: 07/21/17 23:59 Last Admin: 07/21/17 17:37 Dose: 250 mg - Exam General: Reports: Alert, Oriented, Cooperative, No Acute Distress Lungs: Reports: Clear to Auscultation, Normal Respiratory Effort Cardiovascular: Reports: Regular Rate, Regular Rhythm GI/Abdominal Exam: Normal Bowel Sounds, Soft, Non-Tender, No Organomegaly, No Distention, No Abnormal Bruit, No Mass, Pelvis Stable Extremities: Normal Inspection, Normal Range of Motion, Non-Tender, No Pedal Edema, Normal Capillary Refill Skin: Reports: Warm, Dry, Intact Neurological: Reports: No New Focal Deficit Psy/Mental Status: Reports: Alert, Normal Affect, Anxious (some anxiety, but much improved. ) *Q Meaningful Use (DIS) - VTE *Q VTE Criteria *Q: - Stroke *Q Stroke Criteria *Q: - AMI *Q AMI Criteria *Q:
[2017-07-25 11:52] VITALS: BP 110/63
[2017-07-25] MEDS: Pantoprazole 40 MG Vial IVPUSH SCH (12:51)
== END 2017-07-25 12:50 | disposition home or self-care (01) | DRG 690 ==
LOC: MW.ED 20:35 → MW.MS 07-20 01:22 → OBSVTOIN 07-22 11:17 → MW.MS 07-22 14:37
PROVIDERS: ADMIT Internal Medicine; ATTEND Internal Medicine
DX: N12 Tubulo-interstitial nephritis, not specified as acute or chronic (principal); F10.230 Alcohol dependence with withdrawal, uncomplicated; B96.20 Unspecified Escherichia coli [E. coli] as the cause of diseases classified elsewhere; N39.0 Urinary tract infection, site not specified; R10.11 Right upper quadrant pain; R16.0 Hepatomegaly, not elsewhere classified; R79.89 Other specified abnormal findings of blood chemistry; K70.0 Alcoholic fatty liver; F10.10 Alcohol abuse, uncomplicated
CPT/HCPCS: 36415 ×4; 71046; 74177; 76705; 80048; 80053 ×3; 80076; 80305; 81001; 81025; 82150; 83605 ×2; 83690; 83735 ×3; 84100 ×2; 85025 ×4; 87086; 87088; 87186; 87804 ×2; 96361 ×4; 96365; 96366 ×3; 96375 ×3; 96376 ×3; 99285; A9270 ×12; C9113 ×2; G0378 ×2; G0480; J1885; J2060 ×12; J2270 ×6; J2405 ×2; J2543 ×10; J3475; J7040 ×8; J7050 ×10; 80074; 99283